=== PATIENT | female | born 1940 | race Caucasian/White ===

== ENCOUNTER 2019-04-06 09:25 | Inpatient (IN) | payer MEDICARE ==
[2019-04-06] MEDS ORDERED: SODIUM CHLORIDE 0.9% 500 ML 500 ML IV STA (10:01)
--- NOTE | 2019-04-06 10:08 | ED ---
General Adult HPI - General Chief complaint: Weakness Stated complaint: weakness, pain all over Time Seen by Provider: 04/06/19 09:35 Source: patient, RN notes reviewed Mode of arrival: wheelchair Limitations: no limitations - History of Present Illness Initial comments: This is a 78-year-old female who states that she is here because she is getting weaker and having more pain in her extremities. Patient states she has peripheral neuropathy in her legs and that has been getting progressively worse over the last 2 weeks the legs becoming more painful from the hip all the way down bilaterally. Patient states over the last week she started to have some pain in both of her arms. Patient states she thinks her arms and legs become somewhat weaker. Patient denies any numbness but does state they all have a tingling sensation. Patient denies any recent fever chills or cough. Patient denies any chest pain difficult breathing shortness of breath. Patient denies any abdominal pain patient denies nausea vomiting diarrhea. Patient denies any headache patient. Lightheadedness or dizziness. Patient denies any injury or trauma. Patient denies any neck or back pain. - Related Data Home Medications Medication Instructions Recorded Confirmed Aspirin EC [Ecotrin Low Dose] 81 - 162 mg PO HS 04/06/19 04/06/19 Magnesium Complex 1 cap PO DAILY 04/06/19 04/06/19 Nerve Renew 1 cap PO DAILY 04/06/19 04/06/19 Nerve Repair 1 cap PO DAILY 04/06/19 04/06/19 Allergies Allergy/AdvReac Type Severity Reaction Status Date / Time clonidine Allergy Unknown Verified 04/06/19 10:12 nitroglycerin Allergy Anaphylaxis Verified 04/06/19 10:12 Review of Systems ROS Statement: Those systems with pertinent positive or pertinent negative responses have been documented in the HPI. ROS Other: All systems not noted in ROS Statement are negative. Past Medical History Past Medical History: Diabetes Mellitus Additional Past Medical History / Comment(s): neuropathy History of Any Multi-Drug Resistant Organisms: None Reported Past Surgical History: Appendectomy, Hysterectomy, Tonsillectomy Additional Past Surgical History / Comment(s): 2 ectopic pregnancies Past Psychological History: No Psychological Hx Reported Smoking Status: Never smoker Past Alcohol Use History: None Reported Past Drug Use History: None Reported General Exam - General Exam Comments Initial Comments: GENERAL: Patient is well-developed and well-nourished. Patient is nontoxic and well- hydrated and is in mild distress. ENT: Neck is soft and supple. No significant lymphadenopathy is noted. Oropharynx is clear. Moist mucous membranes. Neck has full range of motion without eliciting any pain. EYES: The sclera were anicteric and conjunctiva were pink and moist. Extraocular movements were intact and pupils were equal round and reactive to light. Eyelids were unremarkable. PULMONARY: Unlabored respirations. Good breath sounds bilaterally. No audible rales rhonchi or wheezing was noted. CARDIOVASCULAR: There is a regular rate and rhythm without any murmurs gallops or rubs. ABDOMEN: Soft and nontender with normal bowel sounds. No palpable organomegaly was noted. There is no palpable pulsatile mass. SKIN: Skin is clear with no lesions or rashes and otherwise unremarkable. NEUROLOGIC: Patient is alert and oriented x3. Cranial nerves II through XII are grossly intact. Motor and sensory are also intact. Normal speech, volume and content. Symmetrical smile. MUSCULOSKELETAL: Normal extremities with reduced strength but equal bilaterally and full range of motion. No lower extremity swelling or edema. No calf tenderness. LYMPHATICS: No significant lymphadenopathy is noted PSYCHIATRIC: Normal psychiatric evaluation. Limitations: no limitations Course Vital Signs 04/06/19 04/06/19 09:35 09:51 Temperature 98.1 F Pulse Rate 102 H 96 Respiratory 18 18 Rate Blood Pressure 138/84 161/85 O2 Sat by Pulse 98 97 Oximetry Medical Decision Making - Medical Decision Making EKG shows normal sinus rhythm at 90 bpm HI interval 146 dresses 90 QT interval 376 QTC is 459. Patient's EKG shows no ST segment elevation or depression or T wave abnormalities are noted. CT of the C-spine showed no acute abnormalities however there were some chronic changes please see report. I spoke with Dr. Cazares he agreed to admit the patient admitted the patient I wr ote admitting orders. - Lab Data Result diagrams: 04/06/19 10:10 04/06/19 10:10 Lab Results 04/06/19 04/06/19 04/06/19 Range/Units 10:10 10:10 10:10 WBC 6.9 (3.8-10.6) k/uL RBC 4.65 (3.80-5.40) m/uL Hgb 13.1 (11.4-16.0) gm/dL Hct 39.6 (34.0-46.0) % MCV 85.2 (80.0-100.0) fL MCH 28.2 (25.0-35.0) pg MCHC 33.1 (31.0-37.0) g/dL RDW 13.9 (11.5-15.5) % Plt Count 245 (150-450) k/uL Neutrophils % 72 % Lymphocytes % 17 % Monocytes % 5 % Eosinophils % 3 % Basophils % 2 % Neutrophils # 4.9 (1.3-7.7) k/uL Lymphocytes # 1.2 (1.0-4.8) k/uL Monocytes # 0.4 (0-1.0) k/uL Eosinophils # 0.2 (0-0.7) k/uL Basophils # 0.1 (0-0.2) k/uL ESR 11 (0-20) mm/hr PT (9.0-12.0) sec INR (<1.2) APTT (22.0-30.0) sec Sodium 135 L (137-145) mmol/L Potassium 4.3 (3.5-5.1) mmol/L Chloride 101 (98-107) mmol/L Carbon Dioxide 23 (22-30) mmol/L Anion Gap 11 mmol/L BUN 29 H (7-17) mg/dL Creatinine 0.42 L (0.52-1.04) mg/dL Est GFR (CKD-EPI)AfAm >90 (>60 ml/min/1.73 sqM) Est GFR (CKD-EPI)NonAf >90 (>60 ml/min/1.73 sqM) Glucose 222 H (74-99) mg/dL Plasma Lactic Acid Eliu 1.3 (0.7-2.0) mmol/L Calcium 9.5 (8.4-10.2) mg/dL Magnesium 2.1 (1.6-2.3) mg/dL Total Bilirubin 1.1 (0.2-1.3) mg/dL AST 34 (14-36) U/L ALT 35 (9-52) U/L Alkaline Phosphatase 44 (38-126) U/L Troponin I (0.000-0.034) ng/mL Total Protein 7.2 (6.3-8.2) g/dL Albumin 4.0 (3.5-5.0) g/dL TSH 0.829 (0.465-4.680) mIU/L Free T4 1.70 (0.78-2.19) ng/dL Urine Color Urine Appearance (Clear) Urine pH (5.0-8.0) Ur Specific [place] (1.001-1.035) Urine Protein (Negative) Urine Glucose (UA) (Negative) Urine Ketones (Negative) Urine Blood (Negative) Urine Nitrite (Negative) Urine Bilirubin (Negative) Urine Urobilinogen (<2.0) mg/dL Ur Leukocyte Esterase (Negative) 04/06/19 04/06/19 04/06/19 Range/Units 10:10 10:10 11:00 WBC (3.8-10.6) k/uL RBC (3.80-5.40) m/uL Hgb (11.4-16.0) gm/dL Hct (34.0-46.0) % MCV (80.0-100.0) fL MCH (25.0-35.0) pg MCHC (31.0-37.0) g/dL RDW (11.5-15.5) % Plt Count (150-450) k/uL Neutrophils % % Lymphocytes % % Monocytes % % Eosinophils % % Basophils % % Neutrophils # (1.3-7.7) k/uL Lymphocytes # (1.0-4.8) k/uL Monocytes # (0-1.0) k/uL Eosinophils # (0-0.7) k/uL Basophils # (0-0.2) k/uL ESR (0-20) mm/hr PT 11.2 (9.0-12.0) sec INR 1.1 (<1.2) APTT 25.4 (22.0-30.0) sec Sodium (137-145) mmol/L Potassium (3.5-5.1) mmol/L Chloride (98-107) mmol/L Carbon Dioxide (22-30) mmol/L Anion Gap mmol/L BUN (7-17) mg/dL Creatinine (0.52-1.04) mg/dL Est GFR (CKD-EPI)AfAm (>60 ml/min/1.73 sqM) Est GFR (CKD-EPI)NonAf (>60 ml/min/1.73 sqM) Glucose (74-99) mg/dL Plasma Lactic Acid Eliu (0.7-2.0) mmol/L Calcium (8.4-10.2) mg/dL Magnesium (1.6-2.3) mg/dL Total Bilirubin (0.2-1.3) mg/dL AST (14-36) U/L ALT (9-52) U/L Alkaline Phosphatase (38-126) U/L Troponin I <0.012 (0.000-0.034) ng/mL Total Protein (6.3-8.2) g/dL Albumin (3.5-5.0) g/dL TSH (0.465-4.680) mIU/L Free T4 (0.78-2.19) ng/dL Urine Color Yellow Urine Appearance Clear (Clear) Urine pH 6.0 (5.0-8.0) Ur Specific [place] 1.015 (1.001-1.035) Urine Protein Trace H (Negative) Urine Glucose (UA) 2+ H (Negative) Urine Ketones Trace H (Negative) Urine Blood Negative (Negative) Urine Nitrite Negative (Negative) Urine Bilirubin Negative (Negative) Urine Urobilinogen <2.0 (<2.0) mg/dL Ur Leukocyte Esterase Negative (Negative) Disposition Clinical Impression: Upper extremity weakness, Lower extremity weakness Disposition: ADMITTED IP TO THIS [facility] Referrals: Ihsan Klein MD [Primary Care Provider] - 1-2 days Time of Disposition: 11:58
[2019-04-06 10:21] LABS: Basophils # (A) 0.1 k/uL (0-0.2); Basophils % (A) 2 %; Eosinophils # (A) 0.2 k/uL (0-0.7); Eosinophils % (A) 3 %; HCT 39.6 % (34.0-46.0); HGB 13.1 gm/dL (11.4-16.0); Lymphocytes # (A) 1.2 k/uL (1.0-4.8); Lymphocytes % (A) 17 %; MCH 28.2 pg (25.0-35.0); MCHC 33.1 g/dL (31.0-37.0); MCV 85.2 fL (80.0-100.0); Mean Platelet Volume 7.8; Monocytes # (A) 0.4 k/uL (0-1.0); Monocytes % (A) 5 %; Neutrophils # (A) 4.9 k/uL (1.3-7.7); Neutrophils % (A) 72 %; Platelet Count 245 k/uL (150-450); RBC 4.65 m/uL (3.80-5.40); RDW 13.9 % (11.5-15.5); WBC 6.9 k/uL (3.8-10.6)
--- NOTE | 2019-04-06 10:27 | XR ---
EXAMINATION TYPE: XR chest 2V DATE OF EXAM: 04/06/2019 COMPARISON: None HISTORY: 78-year-old female with weakness TECHNIQUE: AP and lateral views FINDINGS: Heart normal size. Atherosclerotic calcifications throughout the aorta. Strandy atelectasis throughou t the left lung. No consolidation or pleural effusion. IMPRESSION: Strandy atelectasis left lung. Otherwise, no acute process seen.
[2019-04-06 10:28] LABS: ALT 35 U/L (9-52); AST 34 U/L (14-36); African American GFR (CKD) >90 (>60 ml/min/1.73 sqM); Alkaline Phosphatase 44 U/L (38-126); Anion Gap 11 mmol/L; Blood Urea Nitrogen 29 mg/dL (7-17); Calcium 9.5 mg/dL (8.4-10.2); Carbon Dioxide 23 mmol/L (22-30); Chloride 101 mmol/L (98-107); Glucose 222 mg/dL (74-99); Magnesium 2.1 mg/dL (1.6-2.3); Sodium 135 mmol/L (137-145); Total Bilirubin 1.1 mg/dL (0.2-1.3); Total Protein 7.2 g/dL (6.3-8.2)
[2019-04-06 10:31] LABS: INR 1.1 (<1.2); Partial Thromboplastin Time 25.4 sec (22.0-30.0); Prothrombin Time 11.2 sec (9.0-12.0)
[2019-04-06 10:36] LABS: Potassium 4.3 mmol/L (3.5-5.1)
--- NOTE | 2019-04-06 10:45 | CT ---
EXAMINATION TYPE: CT cervical spine wo con DATE OF EXAM: 04/06/2019 COMPARISON: None HISTORY: 78-year-old female neck pain TECHNIQUE: Contiguous axial scanning of the cervical spine without IV contrast. Coronal and sagittal reconstructions performed. CT DLP: 288.2 mGycm Automated exposure control for dose reduction was used. FINDINGS: No craniocervical junction abnormality, predental space widening, or prevertebral soft tissue swellin g. Degenerative changes at the C1 dens articulation. Moderate to advanced discussion plate degenerative change from C4 through C7 levels with small disc o steophyte complexes. Trace grade 1 anterolisthesis at C7-T1. Otherwise, alignment is maintained. Facet and uncovertebral joint arthropathy throughout. No acute fracture of the cervical spine. At C4-C5, changes result in moderate right neural foraminal stenosis. At C5-C6, changes result in mild bilateral neural foraminal stenosis. There is a 1.3 cm heterogeneous nodule within the left lobe of the thyroid gland. IMPRESSION: 1. MODERATE SPONDYLOTIC CHANGES ESPECIALLY FROM C4-C7 LEVELS. 2. 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 3. VARIABLE MILD TO MODERATE NEURAL FORAMINAL STENOSES OUTLINED ABOVE. 4. A 1.3 CM LEFT THYROID NODULE CAN BE FURTHER EVALUATED WITH NONEMERGENT THYROID ULTRASOUND.
[2019-04-06 11:10] LABS: Erythrocyte Sedimentation Rate 11 mm/hr (0-20)
[2019-04-06 11:24] LABS: Appearance,Urine Clear (Clear); Bilirubin,Urine Negative (Negative); Blood,Urine Negative (Negative); Color,Urine Yellow; Glucose,Urine (UA) 2+ (Negative); Ketones,Urine Trace (Negative); Leukocyte Esterase,Urine Negative (Negative); Nitrite,Urine Negative (Negative); Protein,Urine Trace (Negative); Specific Gravity,Urine 1.015 (1.001-1.035); Urobilinogen,Urine <2.0 mg/dL (<2.0)
[2019-04-06] MEDS ORDERED: SODIUM CHLORIDE 0.9% 1,000 ML IV ONE (11:59)
[2019-04-06 14:20] LABS: Glucose,Whole Blood 179 mg/dL (75-99)
[2019-04-06] MEDS ORDERED: ALPRAZolam 0.25 MG TAB PO PRN (15:51)
[2019-04-06] MEDS ORDERED: TEMAZEPAM 15 MG CAP PO PRN (15:51)
[2019-04-06] MEDS ORDERED: ACETAMINOPHEN TAB 500 MG TAB PO PRN (15:51)
[2019-04-06] MEDS: HYDROcodone/APAP 5-325MG 1 EACH TAB PO PRN (16:30)
[2019-04-06] MEDS ORDERED: hydrALAZINE HCL 25 MG TAB PO STA (16:37)
--- NOTE | 2019-04-06 16:57 | CT ---
EXAMINATION TYPE: CT brain wo con DATE OF EXAM: 04/06/2019 COMPARISON: None HISTORY: Bilateral lower extremity weakness. CT DLP: 1056.8 mGycm Automated exposure control for dose reduction was used. FINDINGS: Ventricles have normal size. There is no mass effect nor midline shift. There is no sign of intracran ial hemorrhage. Calvarium is intact. There is small mucus retention cyst right maxillary sinus. IMPRESSION: NEGATIVE CT SCAN OF THE BRAIN.
--- NOTE | 2019-04-06 17:09 | HP ---
HISTORY AND PHYSICAL DATE OF SERVICE: 04/06/2019 CHIEF COMPLAINT: Weakness. HISTORY OF PRESENT ILLNESS: This 78-year-old woman with a past medical history of multiple medical problems, including diabetes, history of peripheral neuropathy, hysterectomy, being followed by a primary physician in the [facility], recently moved to [place] over the last 2 months. The patient is supposed to see Dr. Klein in the near future. 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 Currently the patient also has numbness in the upper limbs. She started dropping things, also. The patient came to [facility] and was admitted for further evaluation and treatment. Evaluation in the ER showed normal CBC and creatinine 0.42, glucose 222. The patient was admitted for further evaluation and treatment. There is no history of any fever, rigor or chills. No history of headache, loss of consciousness, seizures at this time. PAST MEDICAL HISTORY: 1. History of diabetes mellitus. 2. Peripheral neuropathy. 3. History of polio. 4. History of hysterectomy. 5. History of tonsillectomy. HOME MEDICATIONS: 1. Nerve Repair and Nerve Renew 1 daily. 2. Magnesium complex 1 p.o. daily. 3. Aspirin 81 mg daily. ALLERGIES: 1. CLONIDINE. 2. NITRO. FAMILY HISTORY: No history of heart disease or strokes in the family. SOCIAL HISTORY: No history of smoking. No history of alcohol intake. REVIEW OF SYSTEMS: ENT: No diminished hearing. No diminished vision. CARDIOVASCULAR SYSTEM: As mentioned earlier. RESPIRATORY SYSTEM: As mentioned earlier. GI: No nausea, vomiting. : No dysuria or retention. NERVOUS SYSTEM: As mentioned earlier. ALLERGY/IMMUNOLOGY: No asthma, hayfever. MUSCULOSKELETAL: As mentioned earlier. HEMATOLOGY/ONCOLOGY: No history of anemia. ENDOCRINE: History of diabetes mellitus. CONSTITUTIONAL: As mentioned earlier. DERMATOLOGY: Negative. RHEUMATOLOGY: Negative. PSYCHIATRY: As mentioned earlier. PHYSICAL EXAMINATION: Patient alert and oriented x3. Pulse is 96, blood pressure 179/80, respiration 18, temperature 98.0, pulse ox 99% on room air. HEENT: Conjunctivae normal. Oral mucosa moist. NECK: No jugular venous distention. No carotid bruit. No lymph node enlargement. CARDIOVASCULAR SYSTEM: S1, S2 muffled. RESPIRATORY SYSTEM: Breath sounds diminished at the bases. A few scattered rhonchi. No crackles. ABDOMEN: Soft, non-tender. No mass palpable. LEGS: No edema. No swelling. NERVOUS SYSTEM: Higher functions as mentioned earlier. Cranial nerves 2 through 12 grossly intact. Moves all 4 limbs. Minimal sensory difficulty in the upper limbs. Otherwise, significant sensory loss in both lower limbs and significant wasting and weakness also present. Reflexes are diminished. The gait is abnormal. SKIN: No ulcer, rash, bleeding. JOINTS: No active deforming arthropathy. LYMPHATICS: No lymph node palpable in neck, axillae or groin. LABS: Labs at this time show WBC 6.9, hemoglobin 13.1. INR 1.1. Sodium 135, creatinine 0.42. Accu-Cheks 222. Hemoglobin A1c is not available. ASSESSMENT: 1. Significant weakness and gait dysfunction, possibly peripheral neuropathy, motor, sensory; etiology undetermined. 2. Diabetes mellitus, type 2. 3. Hyponatremia. 4. Gait dysfunction. 5. History of appendectomy. 6. History of hysterectomy. 7. History of tonsillectomy. 8. History of ectopic . RECOMMENDATIONS AND DISCUSSION: In this 78-year-old woman who presented with multiple complex medical issues, we will monitor the patient closely, continue the current management, continue with symptomatic treatment. Otherwise, I would recommend a neurology consultation. The patient had a cervical spine CT which showed moderate spondylotic changes, especially from C4-7 levels, and DJD in C7-T1, variable mild to moderate neural foraminal stenosis as outlined above and 1.3 cm left thyroid nodule also. Spondylitic changes in C4-7. I would also recommend orthopedic evaluation if the deficit is more likely to be cervical neck in origin. Otherwise, will continue to monitor. Supplement vitamins. See orders for further details. Prognosis is guarded because of multiple complex medical issues. Further recommendations to follow. A copy of this dictation is being forwarded to Dr. Klein, who will be the primary physician. MMODL / IJN: [id number] /
[2019-04-06 17:16] LABS: Glucose,Whole Blood 211 mg/dL (75-99)
[2019-04-06 20:20] LABS: Glucose,Whole Blood 150 mg/dL (75-99)
[2019-04-06] MEDS: INSULIN ASPART (NovoLOG) 100 UNIT/ML VIAL SQ SCH (20:22)
[2019-04-06] MEDS: HEPARIN SODIUM,PORCINE 5,000 UNIT/ML 1 ML VIAL SQ SCH (20:34)
--- NOTE | 2019-04-06 22:44 | P.CNNES ---
History of Present Illness Consult date: 04/06/19 Reason for Consult: Generalized weakness Chief complaint: Generalized weakness History of Present Illness: REFERRING PHYSICIAN: Dr. Frederick Quijano HISTORY OF PRESENT ILLNESS: Thank you for allowing me to evaluate Mrs. Shaila Mari. Mr. Mari is a 78-year-old woman with past medical history of diabetes and neuropathy, presented to [facility] for increasing weakness and pain in her extremities. Patient states that she's having issues with numbness and tingling of her b/l LE along with her b/l hands. She was seen by a specialist where she should to live up in [facility], underwent thorough work-up with EMG/NCS/MRI just at the end of 2018, and was given the diagnosis of peripheral neuropathy. Patient states that she has been able to follow up with any of her doctors since early this year as her and she decided to move down to [place]. Patient has tried gabapentin, which did not help, lyrica helped but caused multiple falls. When asked about TCAs, she thinks she has tried them but does not want to try any meds for cocnerns of side effects. Patient states that her peripheral neuropathy in her legs has been progressively getting worse over the last 2 weeks where they became more painful from the hip all the way down bilaterally. Patient also started having pain in both of her arms. Patient also thinks that her arms and legs are becoming weaker. PAST MEDICAL HISTORY: Diabetes, neuropathy PAST SURGICAL HISTORY: Appendectomy, hysterectomy, tonsillectomy, 2 ectopic pregnancies. HOME MEDICATIONS: Magnesium, aspirin ALLERGIES: Clonidine, nitroglycerin SOCIAL HISTORY: Never smoker. Lives alone. REVIEW OF SYSTEMS: The 14 systems are reviewed and no additional points are identified compared to the review of systems documented history and physical PHYSICAL EXAMINATION: VITAL SIGNS: Temperature 97.9 pulse rate 96 respiratory rate 17 for pressure 193/80 O2 saturation 98% on 2 L via nasal cannula GEN.: NAD, pleasant and cooperative HEENT: NCAT, sclera without icterus NECK: Supple SKIN AND EXTREMITIES: Warm to touch, no edema NEURO: MENTAL STATUS: Patient alert and oriented to self, place, time. Able to name the current president. Speech fluent, able to name and repeat, following all commands readily. No right and left disorientation, neglect. CRANIAL NERVES II THROUGH XII: II: Pupils are equal and reactive to light symmetrically. No afferent pupillary defect. Visual carrillo are intact. III, IV, : No ptosis. Extraocular movements full. No nystagmus. V: Facial sensation intact from V1-3. VII. No clear facial asymmetry. VIII: Hearing intact to finger rub bilaterally. IX, X: Symmetric palate elevation. XI: Shoulder s hrug intact. XII: Tongue midline without fasciculation or atrophy. MOTOR: Decreased bulk and tone in his b/l LE. No pronator drift or tremor. Strength is 4/5 in b/l UE, weaker hands, b/l LE patient is able to wiggle toes and barely lift his legs against gravity. 1/5 hip flexors/extensors. SENSORY: Decreased to light touch in b/l LE > b/l UE REFLEXES: No reflexes. Toes are downgoing. No clonus. Cristofer's is absent COORDINATION: Finger to nose intact. No dysmetria. GAIT: Patient is unable to stand up on her own due to b/l LE weakness. DIAGNOSTIC TESTING: LABORATORY: WBC 6.9 hemoglobin 13.1 platelets 245 TT 11.2 INR 1.1 Sodium 135 potassium 4.3 chloride 101 bicarb January 27 creatinine 0.42 glucose 222 AST 34 ALT 35 troponin <2.012 TSH 0.8-9 free T4 1 0.7 urinalysis 2+ glucose IMAGING: CT C-spine 04/06/2019: Moderate spondylotic changes especially from C4 to C7 levels. Degenerative grade 1 anterolisthesis at C7 to T1 Variable mild to moderate neural foraminal stenoses. ASSESSMENT: Mr. Mari is a 78-year-old woman with past medical history of diabetes and neuropathy, presented to [facility] for increasing weakness and pain in her extremities. Patient has a known diagnosis of peripheral neuropathy with extensive work-up. Patient's symptoms appear to be most likely secondary to her diabetes, causing diabetic lumbosacral plexopathy. Patient is refusing to try any meds to help her with the paresthesais. RECOMMENDATIONS: 1. Patient will need a new neurologist in [place]. Outpatient neurologist follow-up within 2-3 weeks of discharge (patient must bring all her record from her previous neurologist). 2. Patient is refusing any possible work-up (including LP) and new medications as she feels that an extensive work-up has been done and she does not like any medication side effects. 3. Neurology will sign off at this time. Please feel free to contact with additional questions or concerns. Past Medical History Past Medical History: Diabetes Mellitus Additional Past Medical History / Comment(s): neuropathy History of Any Multi-Drug Resistant Organisms: None Reported Past Surgical History: Appendectomy, Hysterectomy, Tonsillectomy Additional Past Surgical History / Comment(s): 2 ectopic pregnancies Past Psychological History: No Psychological Hx Reported Smoking Status: Never smoker Past Alcohol Use History: None Reported Past Drug Use History: None Reported Medications and Allergies Home Medications Medication Instructions Recorded Confirmed Type Aspirin EC [Ecotrin Low Dose] 81 - 162 mg PO HS 04/06/19 04/06/19 History Magnesium Complex 1 cap PO DAILY 04/06/19 04/06/19 History Nerve Renew 1 cap PO DAILY 04/06/19 04/06/19 History Nerve Repair 1 cap PO DAILY 04/06/19 04/06/19 History Allergies Allergy/AdvReac Type Severity Reaction Status Date / Time clonidine Allergy Unknown Verified 04/06/19 10:12 nitroglycerin Allergy Anaphylaxis Verified 04/06/19 10:12 Physical Examination - Vital Signs Vital Signs: Vital Signs Temp Pulse Pulse Resp BP BP Pulse Ox 04/06/19 14:08 98 197/80 04/06/19 13:01 97.9 F 96 17 193/80 98 04/06/19 12:38 98.1 F 96 18 179/80 99 04/06/19 12:18 96 18 179/80 99 04/06/19 09:51 96 18 161/85 97 04/06/19 09:35 98.1 F 102 H 18 138/84 98 Intake and Output 04/06/19 04/06/19 04/06/19 06:59 14:59 22:59 Intake Total 225 Balance 225 Intake: Intake, IV Titration 75 Amount Sodium Chloride 0.9% 1, 75 000 ml @ 75 mls/hr IV . [id number] ONE Rx#:[id number] Oral 150 Other: Weight 63.503 kg Results - Laboratory Findings CBC and BMP: 04/06/19 10:10 04/06/19 10:10 Abnormal Lab Findings: Abnormal Labs 04/06/19 04/06/19 04/06/19 10:10 11:00 14:15 Sodium 135 L BUN 29 H Creatinine 0.42 L Glucose 222 H POC Glucose (mg/dL) 179 H Urine Protein Trace H Urine Glucose (UA) 2+ H Urine Ketones Trace H
[2019-04-07] MEDS: HYDROcodone/APAP 5-325MG 1 EACH TAB PO PRN (00:49)
[2019-04-07 01:51] LABS: Hemoglobin A1C 8.1 % (4.0-6.0)
[2019-04-07 07:05] LABS: Basophils # (A) 0.1 k/uL (0-0.2); Basophils % (A) 1 %; Eosinophils # (A) 0.4 k/uL (0-0.7); Eosinophils % (A) 8 %; HCT 39.4 % (34.0-46.0); HGB 13.1 gm/dL (11.4-16.0); Lymphocytes # (A) 1.5 k/uL (1.0-4.8); Lymphocytes % (A) 27 %; MCH 29.1 pg (25.0-35.0); MCHC 33.3 g/dL (31.0-37.0); MCV 87.4 fL (80.0-100.0); Mean Platelet Volume 7.7; Monocytes # (A) 0.4 k/uL (0-1.0); Monocytes % (A) 7 %; Neutrophils # (A) 3.1 k/uL (1.3-7.7); Neutrophils % (A) 55 %; Platelet Count 216 k/uL (150-450); RBC 4.51 m/uL (3.80-5.40); WBC 5.6 k/uL (3.8-10.6)
[2019-04-07 07:13] LABS: African American GFR (CKD) >90 (>60 ml/min/1.73 sqM); Anion Gap 7 mmol/L; Blood Urea Nitrogen 19 mg/dL (7-17); Carbon Dioxide 25 mmol/L (22-30); Chloride 105 mmol/L (98-107); Glucose 165 mg/dL (74-99); Potassium 4.1 mmol/L (3.5-5.1); Sodium 137 mmol/L (137-145)
[2019-04-07 07:19] LABS: Glucose,Whole Blood 178 mg/dL (75-99)
--- NOTE | 2019-04-07 07:26 | P.CNOR ---
History of Present Illness - HPI Consult date: 04/07/19 Consult reason: other (Subacute Bilateral upper extremity weakness bilateral lower extremity weakness new) History of present illness: The patient is a very pleasant 78-year-old female who recently moved to [facility] [place] about 2 months ago. She says she has history of bilateral lower extremity weakness over the past year and a half which has worsened significantly over the past couple of months. She also feels that she has had significant worsening her bilateral upper extremity strength over the past 2 months. She has a history of severe bilateral diabetic peripheral neuropathy at her lower extremities but had not been having a problems in her arms until the past couple of months. She had previously been living in [facility] until she lost her in July of last year and and has been having significant decline since August of this year. She moved here couple of months ago and has been having significant difficulty and worsening strength. She lives in assisted living for her meals and usually uses a rolling walker. She says she is usually able to get herself around and get in and out of chairs but over the past few weeks has been getting significantly different more difficult for her and now she is unable to stand up on her own. She does not have any specific injury or trauma. She denies any specific radicular pattern. She denies any changes in bowel bladder function. Review of Systems She has always had left lower extremity weakness and history of polio since she was 10 years old but now she is unable to lift her left leg at all. She has g reat difficulty trying to lift her right leg or trying to stand. She is unable to stand by herself she has full assist when trying to stand. She feels her upper extremities are weakening as well but she's not sure if this is from her arms were at the fact that she can't move her legs as well. Otherwise as stated per HPI. Past Medical History Past Medical History: Diabetes Mellitus Additional Past Medical History / Comment(s): neuropathy History of Any Multi-Drug Resistant Organisms: None Reported Past Surgical History: Appendectomy, Hysterectomy, Tonsillectomy Additional Past Surgical History / Comment(s): 2 ectopic pregnancies Past Psychological History: No Psychological Hx Reported Smoking Status: Never smoker Past Alcohol Use History: None Reported Past Drug Use History: None Reported Medications and Allergies Home Medications Medication Instructions Recorded Confirmed Type Aspirin EC [Ecotrin Low Dose] 81 - 162 mg PO HS 04/06/19 04/06/19 History Magnesium Complex 1 cap PO DAILY 04/06/19 04/06/19 History Nerve Renew 1 cap PO DAILY 04/06/19 04/06/19 History Nerve Repair 1 cap PO DAILY 04/06/19 04/06/19 History Allergies Allergy/AdvReac Type Severity Reaction Status Date / Time clonidine Allergy Unknown Verified 04/06/19 10:12 nitroglycerin Allergy Anaphylaxis Verified 04/06/19 10:12 Physical Examination Osteopathic Statement: *. No significant issues noted on an osteopathic structural exam other than those noted in the History and Physical/Consult. - Wrist & Hand bilateral Location of pain: no pain (Her operative time is really have 5 out of 5 strength with bar pointer wrist flexion and extension biceps and triceps. She has negative Cristofer sign. She has no upper motor neuron signs. Her arms have good strength.) - Knee bilateral Appearance: normal (At her lower extremities her left leg has some diffuse atrophy. She is unable to lift her legs up off the bed bilaterally. She has 4 out of 5 dorsiflexion on the right but 0 out of 5 on the left. She has 4-5 plantar flexion on the right and 0-5 on the left. There is no upper motor neuron signs her Thighs soft nontender. She is unable to lift her legs up off the bed. There is no pain with internal extra rotation of her hips. Her abdomen soft nontender. Chest has good excursion deep inspection expiration) Results - Labs Labs: Abnormal Lab Results - Last 24 Hours (Table) 04/06/19 04/06/19 04/06/19 Range/Units 10:10 10:10 10:10 Sodium 135 L (137-145) mmol/L BUN 29 H (7-17) mg/dL Creatinine 0.42 L (0.52-1.04) mg/dL Glucose 222 H (74-99) mg/dL POC Glucose (mg/dL) (75-99) mg/dL Hemoglobin A1c 8.1 H (4.0-6.0) % Vitamin B12 1967.0 H (200.0-944.0) pg/mL Urine Protein (Negative) Urine Glucose (UA) (Negative) Urine Ketones (Negative) 04/06/19 04/06/19 04/06/19 Range/Units 11:00 14:15 17:14 Sodium (137-145) mmol/L BUN (7-17) mg/dL Creatinine (0.52-1.04) mg/dL Glucose (74-99) mg/dL POC Glucose (mg/dL) 179 H 211 H (75-99) mg/dL Hemoglobin A1c (4.0-6.0) % Vitamin B12 (200.0-944.0) pg/mL Urine Protein Trace H (Negative) Urine Glucose (UA) 2+ H (Negative) Urine Ketones Trace H (Negative) 04/06/19 04/07/19 Range/Units 20:19 06:22 Sodium (137-145) mmol/L BUN 19 H (7-17) mg/dL Creatinine 0.44 L (0.52-1.04) mg/dL Glucose 165 H (74-99) mg/dL POC Glucose (mg/dL) 150 H (75-99) mg/dL Hemoglobin A1c (4.0-6.0) % Vitamin B12 (200.0-944.0) pg/mL Urine Protein (Negative) Urine Glucose (UA) (Negative) Urine Ketones (Negative) H & H 04/06/19 04/07/19 Range/Units 10:10 06:22 Hgb 13.1 13.1 (11.4-16.0) gm/dL Hct 39.6 39.4 (34.0-46.0) % Coagulation 04/06/19 Range/Units 10:10 INR 1.1 (<1.2) Result Diagrams: 04/07/19 06:22 04/07/19 06:22 - Diagnostic results CT scan - cervical: report reviewed, image reviewed (The computed tomography scan of her cervical spine is reviewed and shows some diffuse spondylosis with some disc protrusion it is difficult to ascertain the full extent of her stenosis at her cervical spine and we don't have images to determine if there is any cord change.) Assessment and Plan Assessment: Diffuse severe diabetic peripheral neuropathy Severe bilateral lower extremity weakness which appears to be worsening over the past several weeks as per the patient Reported weakness in bilateral upper extremities which has been worsening as per patient Depression Inability to ambulate and transfer Plan: Diffuse severe diabetic peripheral neuropathy Severe bilateral lower extremity weakness which appears to be worsening over the past several weeks as per the patient Reported weakness in bilateral upper extremities which has been worsening as per patient Depression Inability to ambulate and transfer The patient's symptoms are not following a specific radicular pattern. She has some diffuse spondylosis at her cervical spine but her symptoms at her upper extremities do not correlate well. Her upper external strength actually appears to be adequate on her exam and I think that her perceived weakness at her upper extremities is likely due to the significant loss of strength at her lower extremities. She says she had workup back in July for her spine but this is a new change for her in terms of her strength and I think that we should go ahead and get repeat workup of her cervical and lumbar spine to evaluate for any specific change given her increased weakness over the past few weeks. Many of her symptoms surgery results or her peripheral neuropathy however her progressive weakness is somewhat challenging and I think further workup is necessary. She is not having specific radicular pattern to attribute in terms of her upper extremities and is unlikely that any surgical intervention would be necessary barring specific findings on a new MRI. I discussed this with her at length. And we will continue to follow her with a new imaging studies. Certainly she has some depression with her passing away and Armando accounts very closely with her progressive symptoms since that time and we will have counseling see her as well. Time with Patient: Greater than 30
[2019-04-07] MEDS: HEPARIN SODIUM,PORCINE 5,000 UNIT/ML 1 ML VIAL SQ SCH ×2 (07:30→21:45)
[2019-04-07] MEDS: MULTIVITAMINS, THERA 1 EACH TAB PO SCH (07:30)
[2019-04-07] MEDS: PANTOPRAZOLE 40 MG TABLET PO SCH (07:30)
[2019-04-07] MEDS: FOLIC ACID 1 MG TAB PO SCH (07:30)
[2019-04-07] MEDS: INSULIN ASPART (NovoLOG) 100 UNIT/ML VIAL SQ SCH ×4 (07:31→21:45)
[2019-04-07 11:46] LABS: Glucose,Whole Blood 173 mg/dL (75-99)
[2019-04-07] MEDS: THIAMINE 100 MG TAB PO SCH (12:01)
--- NOTE | 2019-04-07 15:16 | MR ---
EXAMINATION TYPE: MR cspine/lspine wo con DATE OF EXAM: 04/07/2019 COMPARISON: None HISTORY: Upper extremity pain and weakness TECHNIQUE: Multiplanar, multisequence imaging of the lumbar spine and cervical spine is performed wit hout IV contrast. FINDINGS: Cervical spine Vertebra have normal alignment. There is narrowing of disc spaces throughout the cervical spine. Ther e are small posterior endplate spur formation and disc herniation posteriorly from C3 to C7. There is no significant narrowing of the spinal canal. Spinal canal measures minimal mild 9 mm. Cervical spin al cord has normal signal pattern. There is no edema. There is no compression fracture. Brainstem grant ears intact. There is no cervical paraspinal mass. There is mild cervical hypertrophic facet arthropa thy. There is a small posterior disc herniation at T2-T3 level without spinal stenosis. IMPRESSION: Ordinary multilevel mild spondylotic changes. No spinal stenosis. Small posterior multilevel disc bul ging without impingement on the spinal cord. No fracture. Lumbar spine There is some narrowing of the disc spaces at L4-5 L5-S1. There is 5 mm anterior subluxation of L4 in relation L5. The posterior elements appear intact. There is small posterior disc bulging at L3-4 L4-5 L5-S1. There is bony spinal stenosis at L4-5 due to the facet arthropathy and subluxation deformity and minimal disc bulging. There is no lumbar paraspinal m ass. There is mild lateral recess stenosis due to facet arthropathy at L3-4. Visualized sacroiliac kizzy ints appear intact. There is no compression fracture. IMPRESSION: Mild multilevel spondylotic changes. There is a degenerative first-degree L4-5 spondylolisthesis with facet arthropathy and resultant moderate bony spinal stenosis. No acute bony abnormality.
[2019-04-07 16:49] LABS: Glucose,Whole Blood 151 mg/dL (75-99)
[2019-04-07 19:33] LABS: Glucose,Whole Blood 174 mg/dL (75-99)
--- NOTE | 2019-04-07 20:27 | PN ---
PROGRESS NOTE DATE OF SERVICE: 04/07/2019 This 78-year-old woman who was admitted with significant weakness and gait dysfunction MMODL / IJN: [id number] /
--- NOTE | 2019-04-07 22:19 | PN ---
PROGRESS NOTE DATE OF SERVICE: 04/07/2019. HISTORY OF PRESENT ILLNESS: This 78-year-old woman who was admitted with significant weakness and wasting and has had a history of peripheral neuropathy. Patient had extensive workup and apparently in [facility], patient recently moved to the area and was supposed to see Dr. Klein in the near future. PAST MEDICAL HISTORY: Reviewed. REVIEW OF SYSTEMS: Cardiovascular system: No angina or palpitations. RESPIRATORY: As mentioned earlier. GI no nausea or vomiting. : As mentioned earlier. CENTRAL NERVOUS SYSTEM: No focal deficits. CURRENT MEDICATIONS ARE: Reviewed and include: 1. Tylenol p.r.n. 2. [place] 5 mg q.6h p.r.n. 3. Xanax 0.5 t.i.d. 4. Folic acid 1 mg. 5. Heparin subcu q.8h. 6. NovoLog. 7. Multivitamins. 8. Protonix. 9. Restoril. 10.Vitamin B1. PHYSICAL EXAMINATION: The patient is alert and oriented times three. Pulse is 89. Blood pressure 160/83, respirations 18, temperature 98 degrees, pulse ox 97% on room air. HEENT: Conjunctivae normal. NECK: No JVD. CARDIOVASCULAR: S1, S2 muffled. RESPIRATION: Breath sounds diminished in the bases. A few scattered rhonchi and crackles. ABDOMEN: Soft, nontender. No mass palpable. LEGS: No edema. No swelling. Nervous system: Higher functions as mentioned earlier. Significant peripheral neuropathy plus muscle weakness, pulses diminished. LABS: At this time shows CBC within normal limits and creatinine 0.44. Glucose noted. ESR is 11, CRP less than 5. Vitamin B12 is 1967, free T4 is 1.70. ASSESSMENT: 1. Significant diffuse progressive peripheral neuropathy, possible diabetic peripheral neuropathy. 2. Rule out motor component weakness. 3. Gait dysfunction. 4. Diabetes mellitus type 2. 5. Hyponatremia. 6. History of appendectomy. 7. History of hysterectomy. 8. History of tonsillectomy. 9. History of ectopic . RECOMMENDATIONS AND DISCUSSION: In this 78-year-old woman who presented with multiple medical issues, we will monitor the patient closely. Continue the current management and follow closely with Neurology, PO/OT evaluation, possible ECF rehab. The patient is apparently at high risk of fall at this time. Continue to monitor. Further recommendations to follow. See orders for details. MMODL / IJN: [id number] /
[2019-04-08] MEDS: HYDROcodone/APAP 5-325MG 1 EACH TAB PO PRN (06:04)
[2019-04-08 07:02] LABS: Glucose,Whole Blood 181 mg/dL (75-99)
[2019-04-08 07:15] LABS: Basophils # (A) 0.1 k/uL (0-0.2); Basophils % (A) 1 %; Eosinophils # (A) 0.3 k/uL (0-0.7); Eosinophils % (A) 6 %; HCT 39.3 % (34.0-46.0); HGB 12.7 gm/dL (11.4-16.0); Lymphocytes # (A) 1.5 k/uL (1.0-4.8); Lymphocytes % (A) 26 %; MCH 28.3 pg (25.0-35.0); MCHC 32.4 g/dL (31.0-37.0); MCV 87.4 fL (80.0-100.0); Mean Platelet Volume 7.2; Monocytes # (A) 0.3 k/uL (0-1.0); Monocytes % (A) 6 %; Neutrophils # (A) 3.4 k/uL (1.3-7.7); Neutrophils % (A) 59 %; Platelet Count 203 k/uL (150-450); RBC 4.49 m/uL (3.80-5.40); RDW 14.1 % (11.5-15.5); WBC 5.8 k/uL (3.8-10.6)
[2019-04-08 07:24] LABS: African American GFR (CKD) >90 (>60 ml/min/1.73 sqM); Anion Gap 8 mmol/L; Blood Urea Nitrogen 19 mg/dL (7-17); Calcium 9.1 mg/dL (8.4-10.2); Carbon Dioxide 24 mmol/L (22-30); Chloride 105 mmol/L (98-107); Glucose 155 mg/dL (74-99); Potassium 3.7 mmol/L (3.5-5.1); Sodium 137 mmol/L (137-145)
[2019-04-08] MEDS: INSULIN ASPART (NovoLOG) 100 UNIT/ML VIAL SQ SCH ×4 (08:17→20:20)
[2019-04-08] MEDS: HEPARIN SODIUM,PORCINE 5,000 UNIT/ML 1 ML VIAL SQ SCH ×2 (08:18→20:19)
[2019-04-08] MEDS: THIAMINE 100 MG TAB PO SCH (08:19)
[2019-04-08] MEDS: PANTOPRAZOLE 40 MG TABLET PO SCH (08:19)
[2019-04-08] MEDS: MULTIVITAMINS, THERA 1 EACH TAB PO SCH (08:19)
[2019-04-08] MEDS: FOLIC ACID 1 MG TAB PO SCH (08:19)
[2019-04-08 11:06] LABS: Glucose,Whole Blood 105 mg/dL (75-99)
--- NOTE | 2019-04-08 13:57 | P.PN ---
Progress Note - Text Progress Note Date: 04/08/19 Patient seen and examined at bedside today. She still having significant weakness at her lower extremities with pain in her legs. She says her neck is giving her some pain about her arms aren't as bad. She denies any chest pain shortness breath. She denies any changes in her bowel bladder function. On exam she has weakness at her bilateral lower extremities particularly on the left side. She is able to dorsiflex plantarflex her toes on the right. She has some proximal weakness at her left. She is a history of polio on the left. Imaging is done of her cervical and lumbar spine MRI. The cervical spine/some diffuse spondylosis with disc bulging without significant central or foraminal stenosis And lumbar spine there is spondylolisthesis at L4 5 grade 1-2 with evidence of central and bilateral foraminal stenosis there is no acute change or fracture. Assessment and plan Bilateral lower extremity weakness worse on left than the right Inability to ambulate due to lower extremity weakness Spondylolisthesis L4 5 with stenosis The patient's cervical spine does not show specific acute change but does have some diffuse spondylosis. I do not think that she has specific upper extremity weakness but has been having more trouble getting herself up due to the weakness in her lower extremities. She does have significant stenosis with spondylolisthesis L4 5 which makes jewelry to her lower extremity symptoms. Advised see if she has some improvement with dedicated steroid medication and we will start that through the IV. I would also like to have interventional pain management see her to see if the possibility of epidural steroid injection could be helpful at the L4 5 level for her lower extremities. Therapy should continue to work with her to try to mobilize and strengthen as well.
[2019-04-08 17:06] LABS: Glucose,Whole Blood 124 mg/dL (75-99)
[2019-04-08 19:53] LABS: Glucose,Whole Blood 202 mg/dL (75-99)
[2019-04-08] MEDS: methylPREDNISolone SOD SUCCI 125 MG/2 ML VIAL IV SCH (20:19)
--- NOTE | 2019-04-08 23:20 | PN ---
PROGRESS NOTE DATE OF SERVICE: 04/08/2019. This 78-year-old woman who was admitted with significant diffuse progressive peripheral neuropathy, also had significant difficulties and weakness also. No chest pain. No palpitation. PT/OT evaluating the patient for possible ECF rehab. EXAM: Alert and oriented times three. Pulse 82, blood pressure 159/70, respirations 17, temperature 97.9, pulse ox 94% on room air. HEENT: Conjunctivae normal. NECK: No jugular venous distention. CARDIOVASCULAR: S1, S2 muffled. RESPIRATORY: Breath sounds diminished in the bases. A few scattered rhonchi. No crackles. Abdomen is soft. Nontender. LEGS: Diffusely weak and wasting and weakness. lower limb present. Sensory abnormalities also present. LABS: Glucose 181,105. ASSESSMENT: 1. Significant diffuse progressive peripheral neuropathy, possible diabetic peripheral neuropathy. 2. Significant gait dysfunction and weakness. 3. Diabetes type 2. 4. Hyponatremia. 5. History of appendectomy. 6. History of hysterectomy. 7. History of tonsillectomy. 8. History of ectopic . RECOMMENDATIONS AND DISCUSSION: Recommend to continue current medications, symptomatic treatment. Otherwise, at this time, I recommend continue with PT/OT evaluation, possible ECF rehab. Guarded prognosis. Further recommendations to follow. MMODL / IJN: [id number] / MTDD
[2019-04-09 06:52] LABS: Glucose,Whole Blood 234 mg/dL (75-99)
[2019-04-09 07:56] LABS: Basophils % (A) 0 %; Eosinophils % (A) 0 %; HCT 42.2 % (34.0-46.0); HGB 13.8 gm/dL (11.4-16.0); Lymphocytes # (A) 0.9 k/uL (1.0-4.8); Lymphocytes % (A) 12 %; MCH 28.7 pg (25.0-35.0); MCHC 32.7 g/dL (31.0-37.0); MCV 87.7 fL (80.0-100.0); Mean Platelet Volume 7.5; Monocytes # (A) 0.3 k/uL (0-1.0); Monocytes % (A) 3 %; Neutrophils # (A) 6.1 k/uL (1.3-7.7); Neutrophils % (A) 83 %; Platelet Count 272 k/uL (150-450); RBC 4.81 m/uL (3.80-5.40); WBC 7.3 k/uL (3.8-10.6)
[2019-04-09] MEDS: HEPARIN SODIUM,PORCINE 5,000 UNIT/ML 1 ML VIAL SQ SCH ×2 (07:57→23:11)
[2019-04-09] MEDS: MULTIVITAMINS, THERA 1 EACH TAB PO SCH (07:57)
[2019-04-09] MEDS: FOLIC ACID 1 MG TAB PO SCH (07:57)
[2019-04-09] MEDS: THIAMINE 100 MG TAB PO SCH (07:57)
[2019-04-09] MEDS: PANTOPRAZOLE 40 MG TABLET PO SCH (07:57)
[2019-04-09] MEDS: methylPREDNISolone SOD SUCCI 125 MG/2 ML VIAL IV SCH ×2 (07:57→22:41)
[2019-04-09] MEDS: INSULIN ASPART (NovoLOG) 100 UNIT/ML VIAL SQ SCH ×4 (07:58→22:40)
[2019-04-09 08:08] LABS: African American GFR (CKD) >90 (>60 ml/min/1.73 sqM); Anion Gap 9 mmol/L; Blood Urea Nitrogen 26 mg/dL (7-17); Calcium 9.9 mg/dL (8.4-10.2); Carbon Dioxide 28 mmol/L (22-30); Chloride 101 mmol/L (98-107); Glucose 240 mg/dL (74-99); Potassium 4.6 mmol/L (3.5-5.1); Sodium 138 mmol/L (137-145)
--- NOTE | 2019-04-09 09:04 | P.PN ---
Progress Note - Text Progress Note Date: 04/09/19 Patient is a very pleasant 78-year-old female who is seen and examined at bedside for follow-up evaluation in regards to her cervical and lumbar spines. Since being seen and examined yesterday she was started on Solu-Medrol IV. Since that time she feels her pain is significantly better controlled. She has active range of motion bilateral upper extremities without difficulty. She does continue to have significant difficulty with mobility and ambulation with the bilateral lower extremities. She states initially she started to experience weakness in the left foot that slowly progressed up the left leg during the summer of 2017. She states over the past 2 months she has began to experience some increased weakness of the right lower extremity. She denies any specific injuries. She was experiencing significant back pain which has improved with the start Solu-Medrol. Consultation has been placed with PT/OT, and pain management. Nursing states consultation is also been placed with psychiatry for depression. Patient is eating and voiding without difficulty. She did have some difficulty transferring to a bedside commode this morning due to weakness. Patient has been seen and examined by neurology. Physical exam: Patient is awake, alert, and oriented 3 Vital signs stable Good chest excursion with deep inspiration and expiration Examination of lumbar spine reveals skin is intact with no abrasions, lacerations, or bruises; no erythema, purulence or signs of infection Patient has significant difficulties lifting legs off the bed independently Patient is unable to perform active dorsiflexion and flexion of the toes of the left lower extremity Positive sustained range of motion with the right lower extremity but generally weaker Active full range of motion bilateral upper extremities without difficulty No signs or symptoms of DVT; no calf pain No pain with internal and external rotation of the hips bilaterally Neurovascularly intact Assessment: L4-5 grade 1-2 spondylolisthesis L4-5 central and bilateral neuroforaminal stenosis Bilateral lower extremity weakness greater on the left than the right Inability ambulate due to lower extremity weakness Diabetes mellitus History of polio Depression Plan: 1. We will currently planned to continue with conservative treatment at this time. Consultation has been placed for PT/OT. We discussed working with therapy to help increase her mobility. Her pain has been better controlled since starting on Solu-Medrol IV. She does continue to have significant weakness in bilateral lower extremities. Consultation has been placed with pain management yesterday. Patient is still waiting for this evaluation. Per nursing, patient is also waiting for consultation with psychiatry for depression. At this time we will plan to continue conservative treatment and try to avoid the possibility of surgical intervention at her lumbar spine. 2. Patient will continue to be seen and examined by medicine for her other medical diagnoses 3. Patient currently waiting for consultation with PT/OT, pain management, and psychiatry
--- NOTE | 2019-04-09 11:20 | P.PAINCN ---
History of Present Illness - Reason for Consult Consult date: 04/09/19 - History of Present Illness This is a 78-year-old female, with more than nine-month history of left lower extremity pain and weakness, started without any initiating event, and 2 months ago she reported that her symptoms became bilateral lower extremity pain and weakness, and she reported that the pain radiates from the back to the lower extremity, she is not able to ambulate because of the weakness and the pain, her symptoms does not have any radicular pattern, patient was diagnosed with peripheral neuropathy secondary to diabetes , also patient complaining of upper extremity numbness and tingling sensation , she tried Neurontin in the past and she had no benefit and she tried Lyrica and she had side effects from it ,she denies any change in the bowel movement or urination, she denies any fever or night sweats, and patient had MRI of the lumbar spine done at [facility] showed that she had lumbar subluxation at L4 and there is disc bulging at L3 4 L4 5 and L5-S1, and that is spinal stenosis and that is lumbar facet arthropathy at multilevels, patient was evaluated by orthopedic spine surgery and recommended lumbar epidural steroid injection Review of Systems REVIEW OF ORGAN SYSTEMS: CONSTITUTIONAL: No fevers or chills. No recent weight loss. EYES: History of troubles with vision. No glasses. HEENT: No difficulties with hearing. No nosebleeds. No difficulty swallowing. RESPIRATORY: Past pneumonia. Denies any troubles with breathing or dyspnea on exertion. CARDIOVASCULAR: Denies any chest pain, palpitations, or recent heart attacks. GASTROINTESTINAL: Denies fatty food intolerance. Has change in bowel habits and gas bloat. GENITOURINARY: Denies any blood in urine. Has increased urinary frequency. NEUROLOGICAL: Reports lower extremities weakness , no numbness. No seizure disorders or headaches. MUSCULOSKELETAL: Has back pain, . SKIN: Past t skin cancer. No rash. PSYCHIATRIC: Denies current depression or suicidal thoughts. ENDOCRINE: Denies current thyroid disorders. Denies any blood sugar glucose intolerance. HEME/LYMPHATIC: Denies any lumps and bumps around the neck. History of deep venous thrombosis. ALLERGY/IMMUNOLOGY: No immunoglobulin therapy. No immune deficiencies. BREAST: Denies current breast lumps, pain or nipple discharge. Physical Examinations : Constitutiona : Cooperative , not in acute distress . HEENT : nech : supple , no Lymphadenopathy , normal thyroid size . eyes : no ptosis , no icterus, no photophobia . ENT : normal of hearing , normal oropharynx , no Thrush . Respiratory : Chest clear to auscultations Bilaterally , no wheezing , no Rhonchi . Cardiovascula : regular rate and rhythem , S1 , S2 , no S3 , no S4. Gastrointestina : abdomen soft no tenderness , bowel sounds , no organomegally . Genitourinary : Defferred . neurologic : Cranial nerve II to XII intact , no focal neurological deffecit . psychatric : alert , oriented X 3 , appropriate affect , intact judgment and insight . Lymphatic : no Lymphadenopathy . musculoskeltal : Cervical Spine motor stregnth in the deltoid and biceps, 4/5 right side , 4/5 Left side motor stregnth biceps and the wrist extensors normal right side ,normal left side . motor stregnth in the triceps muscle . normal Right side , normal Left side deep tendon reflexes normal at the biceps , normal at Brachioradialis , normal at triceps. cervical facet loading test: Positive Bilaterally Spurling test positive bilaterally. Neck distraction test positive bilaterally. Lumber spine moter stegnth lower extremities ,thigh and legs 2-3 /5 Right side , 1-2/5 Left side Decreased sensation in the lower extremity bilaterally from the mid thigh and distal leg positive lumber facet Loading Test Past Medical History Past Medical History: Diabetes Mellitus Additional Past Medical History / Comment(s): neuropathy History of Any Multi-Drug Resistant Organisms: None Reported Past Surgical History: Appendectomy, Hysterectomy, Tonsillectomy Additional Past Surgical History / Comment(s): 2 ectopic pregnancies Past Psychological History: No Psychological Hx Reported Smoking Status: Never smoker Past Alcohol Use History: None Reported Past Drug Use History: None Reported Medications and Allergies Home Medications Medication Instructions Recorded Confirmed Type Aspirin EC [Ecotrin Low Dose] 81 - 162 mg PO HS 04/06/19 04/06/19 History Magnesium Complex 1 cap PO DAILY 04/06/19 04/06/19 History Nerve Renew 1 cap PO DAILY 04/06/19 04/06/19 History Nerve Repair 1 cap PO DAILY 04/06/19 04/06/19 History Allergies Allergy/AdvReac Type Severity Reaction Status Date / Time clonidine Allergy Unknown Verified 04/06/19 10:12 nitroglycerin Allergy Anaphylaxis Verified 04/06/19 10:12 Physical Exam Vitals: Vital Signs Temp Pulse Resp BP Pulse Ox 04/09/19 05:00 98.1 F 88 16 144/78 96 04/09/19 01:05 86 16 04/08/19 21:00 97.8 F 80 16 133/69 98 04/08/19 12:03 97.9 F 82 17 159/70 95 Intake and Output 04/08/19 04/09/19 04/09/19 22:59 06:59 14:59 Intake Total 440 Balance 440 Intake: Oral 440 Other: Voiding Method Bedpan Bedside Commode Bedside Commode Bedpan Bedpan # Voids 1 1 1 Results CBC & Chem 7: 04/09/19 07:15 04/09/19 07:15 Labs: Abnormal Lab Results - Last 24 Hours (Table) 04/08/19 04/08/19 04/08/19 Range/Units 11:05 17:04 19:52 Lymphocytes # (1.0-4.8) k/uL BUN (7-17) mg/dL Glucose (74-99) mg/dL POC Glucose (mg/dL) 105 H 124 H 202 H (75-99) mg/dL 04/09/19 04/09/19 04/09/19 Range/Units 06:48 07:15 07:15 Lymphocytes # 0.9 L (1.0-4.8) k/uL BUN 26 H (7-17) mg/dL Glucose 240 H (74-99) mg/dL POC Glucose (mg/dL) 234 H (75-99) mg/dL Comments: MRI of the lumbar spine= multilevel lumbar bulging disc disease L3 4 and L4 5 and L5-S1, multilevel lumbar facet arthropathy, and lumbar spinal stenosis, and L4 subluxation MRI of the cervical spine= cervical spondylosis Assessment and Plan Plan: Assessment and plan= lumbar degenerative disc disease, lumbar spinal stenosis, lumbar spondylosis with lumbar facet arthropathy, peripheral neuropathy Cervical spondylosis Patient could benefit from lumbar epidural steroid injection under fluoroscopy guidance at the L4 5 level, procedure risk and benefits and alternatives discussed with the patient and she agreed with proceeding Time with Patient: Greater than 30 PQRS Measure Charge Sheet PQRS Narrative: Smoking Status Never smoker Blood Pressure [Left Arm] 144/78 Blood Pressure 179/80 Pain Intensity [Bilateral Leg] 0 Pain Intensity 3 Pain Scale Used Numeric (1 - 10) Scale Used Numeric (1 - 10) Home Medications: Ambulatory Orders Aspirin EC [Ecotrin Low Dose] 81 - 162 mg PO HS 04/06/19 Magnesium Complex 1 cap PO DAILY 04/06/19 Nerve Renew 1 cap PO DAILY 04/06/19 Nerve Repair 1 cap PO DAILY 04/06/19
[2019-04-09 11:21] LABS: Glucose,Whole Blood 217 mg/dL (75-99)
--- NOTE | 2019-04-09 12:02 | P.PCN ---
Date of Procedure: 04/09/19 Procedure(s) Performed: PREOPERATIVE DIAGNOSIS: 1- Lumbar Degenerative Disc Diseases 2-Lumbar spondylosis with Facet arthropathy without myelopathy 3-lumbar spinal stenosis. 4-peripheral neuropathy POSTOPERATIVE DIAGNOSIS: Same as pre-op diagnoses PROCEDURE 1. Lumbar epidural steroid injection under fluoroscopic guidance at the L4-5 level. (Fluoroscopy imaging was available in radiology department) 2. Lumbar epidurogram. ANESTHESIA: Local with 1% lidocaine 3 ml only . EBL: Minimal PROCEDURE INDICATION: The patient with low back pain and radiculitis symptoms unresponsive to conservative treatment. Fluoroscopy was used to optimize visualization of the needle placement and to maximize safety. PROCEDURE DESCRIPTION / TECHNIQUE: The patient was seen and identified in the preoperative area. Risks, benefits, complications including but not limited to infections ,bleeding ,allergic reaction to the medications ,nerve damage and not complete pain releife , and alternatives were discussed with the patient. The patient agreed to proceed with the procedure and signed the consent. IV was started, and vital signs were stable. Patient was taken to the OR and time out was completed. The patient was placed in the prone position on procedure table and a pillow was placed under the abdomen to reduce lumbar lordosis. The lumbosacral area was prepped and draped in the usual sterile fashion.ere closely monitored during the procedure. . Vital signs was monitered during the entire procedure. Using anterior-posterior fluoroscopy, the L4-5 interlaminar space was identified and the skin over this site was marked and then infiltrated with 1% lidocaine subcutaneously. Subsequently, a 20-gauge Tuohy epidural needle was inserted and advanced toward the epidural space using the ``Loss of resistance technique and guided by AP and lateral fluoroscopy. The correct needle position in the epidural space was verified with the injection of 2 mL of the water soluble contrast dye Isovue 200 contrast and observing an excellent epidurogram with the epidural spread of the dye, after negative aspiration for blood and CSF and in the absence of paresthesias. Again after negative aspiration, a 6 ml mixture containing 40 mg of Depo-medrol , and 2 ml of preservative free Normal Saline, and 2 ml of preservative free lidocaine 1% solution was injected and a washout of epidurogram was seen. Needle was withdrawn intact, skin was cleansed, and bandages were applied. COMPLICATIONS: None DISPOSITION / PLANS: The patient was placed in a supine position and transferred to the recovery area in a stable condition for observation. There was no evidence of lower extremity motor or sensory deficit after the procedure. Patient was discharged from the recovery room after meeting discharge criteria. Home discharge instructions were given to the patient by the staff. The patient was reexamined prior to discharge. The patient will schedule a follow up in the clinic in 2-4 weeks.
--- NOTE | 2019-04-09 12:11 | FL ---
EXAMINATION TYPE: FL guided pain mgmt statistic DATE OF EXAM: 04/09/2019 CLINICAL HISTORY: Low back pain. TECHNIQUE: Fluoroscopy. COMPARISON: None. FINDINGS: Fluoroscopic guidance was provided during pain relief procedure performed by Dr. Perez . A total of 3 seconds of fluoroscopic time was utilized during the procedure and two spot images ar e acquired. Images acquired shows needle localization at L5 level. IMPRESSION: As Above.
[2019-04-09] MEDS: HYDROmorphone 0.5 MG/0.5 ML SYRINGE IVP PRN (17:13)
[2019-04-09] MEDS: ASPIRIN 81 MG PO SCH (17:13)
--- NOTE | 2019-04-09 17:14 | P.CN ---
Psychiatric Consult - . 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 HISTORY OF PRESENT ILLNESS: This patient is a 78-year-old female who presented to the emergency Department with weakness and pain in her extremities which have increased over time. Neurology and pain management were consulted, pain management gave patient an epidural steroid injection earlier today. Psychiatry was consulted for "depression". Patient's nurse described patient as having anxiety complaining of different somatic symptoms including chest pain/heaviness, headaches shortness of breath. Senior Data Mining Analyst sought patient in the bedside who appeared to be calm and somewhat cooperative initially however asked policy writer sales to leave several times during the interview but was easily distracted and told different stories and engaged with policy writer sales. Patient claims that she cannot talk to policy writer sales as she feels like she is having a stroke at this time and was asking for aspirin to be given to help her with her stroke. Patient was somatically preoccupied and spoke of her chest pain and heaviness, headaches or shortness of breath however patient appeared to be resting comfortably, somewhat anxious. Patient admitted to having anxiety and states that her symptoms worsened since her 2 months ago and she had to move to a senior center which she does not like. Patient states that she does not like to take any medications mainly allopathic medications. Patient did endorse wanting to stick to natural supplements and showed policy writer sales 2 bottles of magnesium and another nutritional supplement which she describes "can repair my nerves". Patient denies any changes in her mood and states she is not depressed and denies any manic symptoms. Patient claims she sleeps poorly at night and has a fair appetite. At this time patient denies any suicidal or homicidal ideations intent or plan and denies any auditory or visual hallucinations. PAST PSYCHIATRIC HISTORY: Patient denies ever seeing a psychiatrist at the past denies any previous suicide attempts or being on any psychotropic medications. PAST MEDICAL HISTORY: Diabetes mellitus, neuropathy. ALLERGIES: Clonidine and nitroglycerin. CHEMICAL DEPENDENCY HISTORY: denies. FAMILY PSYCHIATRIC/SUBSTANCE USE HISTORY: denies. SOCIAL HISTORY: Patient is recently claims her 2 months ago, has 1 son and currently lives in a seniors center in [facility]. 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 MENTAL STATUS EXAM: General Appearance: Patient appears to be stated age is alert, and directable. Patient has fair hygiene and grooming and wearing hospital gown. Behavior: Patient is anxiously lying in bed without any agitated behavior. Speech: Patient's speech is fluent and nonpressured. Mood/Affect: Patient reports their mood is "fine", affect is congruent and p atient appears to be anxious. Suicidality/Homicidality: Patient denies having any suicidal or homicidal ideation intent or plan. Perceptions: Patient denies any auditory or visual hallucinations. Though content/process: There is no evidence of any delusional thought content and thought process is linear and goal-directed. Patient is somatically preoccupied and is believing that she is having a stroke, requesting aspirin. Memory and concentration: AOX3, grossly intact for the purposes of this session. Can spell "WORLD" backwards Judgment and insight: Poor IMPRESSIONS: Anxiety disorder unspecified rule out somatic symptom disorder vs. illness anxiety disorder vs. generalized anxiety disorder vs. panic attacks. PLAN: -At this time patient patient does NOT meet criteria for inpatient psychiatric admission. -It appears that patient is preoccupied with her symptoms and has poor insight into her condition. Patient spoke several times about a stroke however is not endorsing specific stroke symptoms except for a headache. A large differential is at play at this time for diagnosis and does appear the patient is anxious underlying it all. Senior Data Mining Analyst spoke with patient about medications however patient is dismissive and states that she will think about it and does not trust allopathic medicine. Senior Data Mining Analyst attempted to engage patient with breathing/relaxation techniques which can be done however patient claimed that she was too focused on her stroke symptoms and did not want to learn them at this time. -Would recommend the following medication changes/additions: Can try Zoloft 25 mg for 3 days daily for mood/anxiety with plan to titrate up as tolerated to 50 mg or higher. Patient is unlikely to take this medication however we can offer it to her. Another option that will be ordered is BuSpar 15 mg twice a day for anxiety symptoms. -Psychiatry will sign off at this point Thank you for the consult
[2019-04-09] MEDS ORDERED: busPIRone HCl 5 MG TAB PO PRN (17:16)
[2019-04-09 17:24] LABS: Glucose,Whole Blood 299 mg/dL (75-99)
--- NOTE | 2019-04-09 17:34 | PN ---
PROGRESS NOTE DATE OF SERVICE: 04/09/2019 This 78-year-old woman who was admitted with significant diffuse progressive weakness and wasting was also complaining of chest pain which was left-sided, radiating to the left arm, with left arm numbness after exertion today. The patient had lumbar epidural injection by Pain Management today. Multiple consultants, including Neurology, psychiatry consultation underway. Past medical history reviewed. REVIEW OF SYSTEMS: CARDIOVASCULAR SYSTEM: As mentioned earlier. RESPIRATORY SYSTEM: As mentioned earlier. GI: No nausea, vomiting. : No dysuria or retention. NERVOUS SYSTEM: No numbness, weakness. CURRENT MEDICATIONS: Current medications include: 1. Tylenol p.r.n. 2. [place] 5 mg q.6 p.r.n. 3. Xanax 0.25 t.i.d. 4. Folic acid 1 mg daily. 5. Heparin 5000 units subcutaneously b.i.d. 6. NovoLog before meals and at bedtime. 7. Solu-Medrol 60 IV b.i.d. 8. Multivitamins 1 p.o. daily. 9. Protonix 40 mg daily. 10.Restoril 15 mg at bedtime. 11.Vitamin B1 100 mg p.o. daily. PHYSICAL EXAMINATION: Patient is alert and oriented x3. Pulse is 101, blood pressure 152/70, respiration 20, temperature 97.9, pulse ox 95% on room air. HEENT: Conjunctivae normal. NECK: No jugular venous distention. CARDIOVASCULAR SYSTEM: S1, S2 muffled. RESPIRATORY SYSTEM: Breath sounds diminished at the bases. Bilateral scattered rhonchi and crackles. ABDOMEN: Soft, non-tender. No mass palpable. LEGS: No edema. No swelling. NERVOUS SYSTEM: Higher functions as mentioned earlier. Moves all 4 limbs. No focal motor or sensory deficit. LYMPHATICS: No lymph node palpable in neck, axillae or groin. SKIN: No ulcer, rash, bleeding. JOINTS: No active deforming arthropathy. LABS: CBC within normal limits. Sodium 138, potassium 4.6, glucose 240. ASSESSMENT: 1. Diffuse progressive weakness with peripheral neuropathy; possibly diabetic peripheral neuropathy. 2. Significant gait dysfunction and muscle weakness. 3. Diabetes mellitus, type 2. 4. Chest pain; possible unstable angina; possibly musculoskeletal. 5. Hyponatremia. 6. History of appendectomy. 7. Status post lumbar epidural steroid injection for significant lumbar degenerative joint disease, spondylosis and lumbar spinal stenosis and peripheral neuropathy. 8. History of hysterectomy. 9. History of tonsillectomy. 10.History of ectopic . RECOMMENDATIONS AND DISCUSSION: In this 78-year-old woman who presented with multiple medical issues, at this time I recommend to continue current management, continue symptomatic treatment. I recommend EKG, a set of troponins, and also cardiology consultation. Continue to monitor. Symptomatic treatment. PT/OT evaluation and possible ECF rehab. I would also recommend a psychiatric consultation. The patient was started on IV steroids. We will monitor the blood sugars closely. DVT prophylaxis. The prognosis is guarded because of multiple complex medical issues. Further recommendations to follow. MMODL / IJN: [id number] / ANGY
[2019-04-09 20:19] LABS: Glucose,Whole Blood 217 mg/dL (75-99)
[2019-04-09] MEDS: MIRTAZAPINE 15 MG TAB PO SCH (22:39)
[2019-04-09] MEDS: HEPARIN SOD,PORK IN 0.45% NACL 25,000 UNIT in 0.45% NACL 1 250ML.BAG IV SCH (22:53)
[2019-04-10 06:30] LABS: Glucose,Whole Blood 309 mg/dL (75-99)
[2019-04-10] MEDS: PANTOPRAZOLE 40 MG TABLET PO SCH (06:57)
[2019-04-10] MEDS: HYDROmorphone 0.5 MG/0.5 ML SYRINGE IVP PRN ×2 (07:00→20:24)
[2019-04-10] MEDS: INSULIN ASPART (NovoLOG) 100 UNIT/ML VIAL SQ SCH ×4 (07:00→21:03)
[2019-04-10] MEDS: methylPREDNISolone SOD SUCCI 125 MG/2 ML VIAL IV SCH ×2 (09:07→20:05)
[2019-04-10] MEDS: SERTRALINE 25 MG TAB PO SCH (09:13)
[2019-04-10] MEDS: MULTIVITAMINS, THERA 1 EACH TAB PO SCH (09:13)
[2019-04-10] MEDS: FOLIC ACID 1 MG TAB PO SCH (09:13)
[2019-04-10] MEDS: ASPIRIN 81 MG PO SCH (09:34)
[2019-04-10] MEDS ORDERED: ATORVASTATIN 80 MG TAB PO STA (10:06)
[2019-04-10] MEDS ORDERED: NITROGLYCERIN SL TABS 0.4 MG TAB SUBLINGUAL PRN (10:06)
[2019-04-10] MEDS ORDERED: ALPRAZolam 0.25 MG TAB PO PRN (10:06)
[2019-04-10] MEDS ORDERED: ASPIRIN 325 MG TAB PO STA (10:06)
[2019-04-10] MEDS ORDERED: SODIUM CHLORIDE 0.9% 1,000 ML in EMPTY BAG 1 BAG IV ONE (10:06)
[2019-04-10] MEDS ORDERED: ALPRAZolam 0.5 MG TAB PO PRN (10:06)
--- NOTE | 2019-04-10 10:35 | CONS ---
CONSULTATION Mrs. Mari is a 78-year-old female who is seen for cardiac evaluation. This patient's medical records reviewed. This patient has a history of diabetes, peripheral neuropathy, hysterectomy. Patient just recently moved to this area. Patient was admitted with a complaint of progressive weakness and numbness in the lower limb for last several weeks. Patient has a lumbar spinal stenosis. She got an epidural injection yesterday and about a couple of hours later, patient started having discomfort in the head and then she had significant discomfort in the chest which was radiating to the jaw and both arms. Patient received Dilaudid with some relief. Subsequently, she had again a reoccurrence of the pain. At present, patient is comfortable. There is no prior history of myocardial infarction. History of diabetes and history of polio. PATIENT'S PAST MEDICAL HISTORY: Includes history of diabetes, neuropathy, history of polio and hysterectomy. PATIENT'S HOME MEDICATIONS: Included aspirin and magnesium. SOCIAL HISTORY: Patient does not smoke. PHYSICAL EXAMINATION: At present reveals a 78-year-old female who does not appear to be in any acute distress. Patient's heart rate is 80 per minute, blood pressure is 154/77 mmHg. HEENT examination is negative. Neck is supple. There is no increase in jugular venous pressure. Both the carotid pulses are felt, there is no bruit. Chest is symmetrical. Heart, the PMI is not felt. First and second heart sounds are normal. There is no evidence of any murmur. Lungs are clinically clear to auscultation and percussion. Abdomen is soft. Liver and spleen are not enlarged. Bowel sounds are heard. Extremities, peripheral pulsations are 2+. EKG shows normal sinus rhythm without any acute ischemic changes. Patient's initial troponin was normal. Subsequent troponin is 0.670 and 1330. IMPRESSION: This patient has history suggestive of non ST-segment elevation myocardial infarction. Patient has a history of diabetes. Patient currently is getting heparin drip. We will add Lipitor 80 mg daily and Lopressor 25 mg b.i.d. Patient is advised further evaluation with a cardiac catheterization for definitive diagnosis. Echo and Doppler study will be also done. We will also discuss with Dr. Perez to make sure that it is okay with him to give the patient aspirin and Plavix. MMODL / IJN: [id number] /
[2019-04-10 11:37] LABS: Glucose,Whole Blood 201 mg/dL (75-99)
[2019-04-10] MEDS: THIAMINE 100 MG TAB PO SCH (12:00)
--- NOTE | 2019-04-10 12:01 | ECHOF ---
Referral Reason:positive trops MEASUREMENTS -------- HEIGHT: 165.1 cm WEIGHT: 64.9 kg BP: RVIDd: 3.1 cm (< 3.3) IVSd: 1.0 cm (0.6 - 1.1) LVIDd: 3.7 cm (3.9 - 5.3) LVPWd: 1.0 cm (0.6 - 1.1) IVSs: 1.8 cm LVIDs: 2.3 cm LVPWs: 1.4 cm LA Diam: 3.9 cm (2.7 - 3.8) LAESV Index (A-L): 31.21 ml/m Ao Diam: 3.3 cm (2.0 - 3.7) AV Cusp: 1.9 cm (1.5 - 2.6) MV EXCURSION: 13.189 mm (> 18.000) MV EF SLOPE: 49 mm/s (70 - 150) EPSS: 1.3 cm MV E Ritchie: 1.11 m/s MV DecT: 185 ms MV A Ritchie: 1.36 m/s MV E/A Ratio: 0.81 FINDINGS -------- Sinus rhythm. This was a technically good study. The left ventricular size is normal. Left ventricular wall thickness is normal. Overall left vent ricular systolic function is low-normal with, an EF between 50 - 55 %. The right ventricle is normal in size. LA is midly dilated 29-33ml/m2. The right atrium is normal in size. Interatrial and interventricular septum intact. The aortic valve is trileaflet and appears structurally normal. The mitral valve leaflets are mildly thickened. Mild mitral annular calcification present. The tricuspid valve appears structurally normal. There is no pulmonic regurgitation present. The aortic root size is normal. Normal inferior vena cava with normal inspiratory collapse consistent with estimated right atrial pre ssure of 5 mmHg. There is no pericardial effusion. CONCLUSIONS -------- 1. Sinus rhythm. 2. This was a technically good study. 3. The left ventricular size is normal. 4. Left ventricular wall thickness is normal. 5. Overall left ventricular systolic function is low-normal with, an EF between 50 - 55 %. 6. The right ventricle is normal in size. 7. LA is midly dilated 29-33ml/m2. 8. The right atrium is normal in size. 9. Interatrial and interventricular septum intact. 10. The aortic valve is trileaflet and appears structurally normal. 11. The mitral valve leaflets are mildly thickened. 12. Mild mitral annular calcification present. 13. The tricuspid valve appears structurally normal. 14. There is no pulmonic regurgitation present. 15. The aortic root size is normal. 16. Normal inferior vena cava with normal inspiratory collapse consistent with estimated right atrial pressure of 5 mmHg. 17. There is no pericardial effusion. THERAPEUTIC SALES SPECIALIST: Leigh Field RDCS
--- NOTE | 2019-04-10 12:24 | P.PN ---
Progress Note - Text Progress Note Date: 04/10/19 Patient is a very pleasant 78-year-old female who is seen and examined at bedside for follow-up evaluation in regards to her cervical and lumbar spines. Since being seen and examined yesterday she has been seen and examined by pain management. She had an epidural injection. She states her pain has significantly improved following the epidural injection. She has active range of motion bilateral upper extremities without difficulty. She does continue to have significant difficulty with mobility and ambulation with the bilateral lower extremities. She states initially she started to experience weakness in the left foot that slowly progressed up the left leg during the summer of 2017. She states over the past 2 months she has began to experience some increased weakness of the right lower extremity. She denies any specific injuries. She continues to have significant difficulty with mobilization and requires 2 patient assist to transfer to a bedside commode. Since being seen examined yesterday she has had further evaluation by medicine. Troponin levels did show elevated troponin at 0.67 and increased to 1.33. She was transferred to [facility] care. Patient has been discussed in detail medicine today. Medicine states patient is scheduled for heart catheterization today. She has been seen and examined by cardiology as well. She underwent an echocardiogram today. Patient has been seen and examined by neurology. Physical exam: Patient is awake, alert, and oriented 3 Vital signs stable Good chest excursion with deep inspiration and expiration Examination of lumbar spine reveals skin is intact with no abrasions, lacerations, or bruises; no erythema, purulence or signs of infection Patient has significant difficulties lifting legs off the bed independently Patient is unable to perform active dorsiflexion and flexion of the toes of the left lower extremity Positive sustained range of motion with the right lower extremity but generally weaker Active full range of motion bilateral upper extremities without difficulty No signs or symptoms of DVT; no calf pain No pain with internal and external rotation of the hips bilaterally Neurovascularly intact Assessment: L4-5 grade 1-2 spondylolisthesis L4-5 central and bilateral neuroforaminal stenosis Bilateral lower extremity weakness greater on the left than the right Inability ambulate due to lower extremity weakness Diabetes mellitus History of polio Depression Elevated troponin levels Plan: 1. Patient has been discussed in detail with Dr. Lan Gong. Patient has been seeing him by pain management has undergone an injection at her lumbar spine. Since that time her pain is much better controlled. She does continue to have significant weakness in bilateral lower extremities. She does have evidence of change at her lumbar spine most significant at L4-5 with a grade 1-2 spondylolisthesis and central and bilateral neural foraminal stenosis. Although she has significant changes at the L4-5 level, all of her lower extremity weakness symptoms do not correlate well with this single level specifically. At this time we'll plan to obtain an MRI of the thoracic spine to rule out possible cord compression or another cause for her bilateral lower extremity weakness. Following the completion of the thoracic MRI, we will review this imaging and follow-up with the patient to discuss treatment options. 2. Patient will continue to be seen and examined by medicine for her other medical diagnoses 3. Patient will continue be seen examined by cardiology and is scheduled for cardiac catheterization today; patient also recently underwent echocardiogram today
[2019-04-10] MEDS ORDERED: fentaNYL (PF) 50 MCG/ML 2 ML AMP IV ONE (13:30)
[2019-04-10] MEDS ORDERED: MIDAZOLAM (PF) 2 MG/2 ML VIAL IV ONE (13:30)
[2019-04-10] MEDS ORDERED: IV FLUID CONTINUATION 800 ML IV ONE (13:31)
[2019-04-10] MEDS ORDERED: LIDOCAINE 1% INJ 10MG/ML (20 ML MDV) SQ ONE (13:33)
[2019-04-10] MEDS ORDERED: METOPROLOL TARTRATE 5 MG/5 ML VIAL IVP ONE (13:43)
[2019-04-10] MEDS ORDERED: NITROGLYCERIN SL TABS 0.4 MG TAB SUBLINGUAL ONE (13:51)
[2019-04-10] MEDS ORDERED: IOPAMIDOL-370 125ML BTL INJ ONE (13:53)
[2019-04-10] MEDS ORDERED: RX INFO: IV CONTRAST WAS GIVEN 1 EACH MISC MISCELLANE PRN (14:09)
[2019-04-10 14:21] LABS: Glucose,Whole Blood 231 mg/dL (75-99)
--- NOTE | 2019-04-10 14:35 | PN ---
PROGRESS NOTE DATE OF SERVICE: 04/10/2019. This is a 78-year-old woman who was admitted with diffuse progressive weakness and peripheral neuropathy, is also having chest pain yesterday. Cardiology is planning a cardiac catheterization. No chest pain. No palpitations. No fever at this time. The troponins is elevated to 1.[address] elevation myocardial infarction. PHYSICAL EXAM: Alert and oriented x3. Pulse is 97, blood pressure 144/77, respirations 16, temperature 98.2, pulse ox 98% on 2 L. HEENT: Conjunctivae normal. NECK: No jugular venous distension. CARDIOVASCULAR SYSTEM: S1, S2, muffled. RESPIRATORY: Breath sounds diminished at the bases, no rhonchi. ABDOMEN: Soft, nontender. LEGS: No edema, no swelling. NERVOUS SYSTEM: Unchanged. LABS: Troponin 1.360. ASSESSMENT: 1. Diffuse progressive weakness and peripheral neuropathy, possible diabetic peripheral neuropathy. 2. Chest pain, possible acute non ST elevation myocardial infarction with troponin 1.330. 3. Significant gait dysfunction with muscle weakness. 4. Diabetes mellitus type 2. 5. Hyponatremia. 6. History of appendectomy. 7. Status post lumbar epidural steroid injection for significant lumbar degenerative joint disease, spondylosis, and lumbar spine stenosis and peripheral neuropathy. 8. History of hysterectomy. 9. History of tonsillectomy. 10.History of ectopic . RECOMMENDATION: Recommend to continue current management, continue monitoring and symptomatic treatment. Otherwise, recommend repeat labs. Acute complaints, no protocol. Guarded prognosis because of multiple complex medical issues. Further recommendations to follow. MMODL / IJN: [id number] /
[2019-04-10 17:09] LABS: Glucose,Whole Blood 238 mg/dL (75-99)
[2019-04-10] MEDS: SODIUM CHLORIDE 0.9% 1,000 ML IV SCH (17:24)
--- NOTE | 2019-04-10 18:50 | P.GSCN ---
<Yobany Mayfield - Last Filed: 04/10/19 17:16> History of Present Illness Consult date: 04/10/19 Reason for Consult: Coronary artery disease with left main disease. Requesting physician: Cain Blum History of present illness: This is a 78-year-old female patient who is followed by Dr. Ihsan Klein on an outpatient basis. She has past medical history significant for hypertension, hyperlipidemia, polio, diabetes mellitus type 2 with an admission hemoglobin A1c of 8.1%, history of CVA in 2011 with no residual effects, peripheral neuropathy with progressive weakness and numbness to her bilateral lower extremities. The patient recently moved to the area from [facility] and has been living at an assisted living [facility]. She reports that she has been wheelchair bound for around 8 months due to lower extremity weakness. She denies any complaints of pain to her bilateral lower extremities but does report numbness and tingling and is complaining of episodes of shortness of breath. Due to her weakness to her lower extremities which as progressively gotten worse over the last 2 weeks she presented to the emergency department here at [facility]. She denies any pain, recent fever, chills, injury or trauma, lightheadedness or palpitations. The patient also reports that she has been some upper extremity weakness as well over the past 2 weeks. Due to her weakness in her lower extremities and MRI was completed which showed lumbar subluxation at L4 and disc bulging at L3, L4, L5 and L5 to S1. It also showed spinal stenosis. Subsequently on 04/09/2019 the patient underwent a lumbar epidural steroid injection under fluoroscopic guidance performed by anesthesia pain management. Postoperatively the patient starting having complaints of a headache which radiated to her jaw, chest and bilateral upper extremities. Due to the complaints of chest pain a consult was placed to cardiology. A 2-D echocardiogram was completed which showed her to have an overall left ventric ular systolic function to be low normal with an ejection fraction between 50 and 55%. Today for further evaluation she underwent a cardiac catheterization which demonstrated her to have an 80% stenosis to her left main coronary artery, a 90% stenosis to her posterior left ventricular branch, and 80% stenosis to her obtuse marginal branch, a 90% stenosis to her circumflex coronary artery and a 90% stenosis to her ostial left anterior descending coronary artery. Post operative cardiac catheterization a consult was placed to Dr. Luther Weiner from cardiothoracic surgery to review her films and evaluate the patient for possible myocardial vascularization surgery. Review of Systems A 14 point review of systems was completed and was negative except as mentioned in the HPI. Past Medical History Past Medical History: CVA/TIA, Diabetes Mellitus, Hyperlipidemia, Hypertension, Neurologic Disorder (Peripheral neuropathy) Additional Past Medical History / Comment(s): neuropathy, history of CVA in 2012 and history of polio. History of Any Multi-Drug Resistant Organisms: None Reported Past Surgical History: Appendectomy, Hysterectomy, Tonsillectomy Additional Past Surgical History / Comment(s): 2 ectopic pregnancies Past Psychological History: No Psychological Hx Reported Smoking Status: Never smoker Past Alcohol Use History: None Reported Past Drug Use History: None Reported Medications and Allergies Home Medications Medication Instructions Recorded Confirmed Type Aspirin EC [Ecotrin Low Dose] 81 - 162 mg PO HS 04/06/19 04/06/19 History Magnesium Complex 1 cap PO DAILY 04/06/19 04/06/19 History Nerve Renew 1 cap PO DAILY 04/06/19 04/06/19 History Nerve Repair 1 cap PO DAILY 04/06/19 04/06/19 History Allergies Allergy/AdvReac Type Severity Reaction Status Date / Time clonidine Allergy Unknown Verified 04/06/19 10:12 nitroglycerin Allergy Anaphylaxis Verified 04/06/19 10:12 Surgical - Exam Vital Signs Temp Pulse Resp BP Pulse Ox 98.1 F 102 H 18 138/84 98 04/06/19 09:35 04/06/19 09:35 04/06/19 09:35 04/06/19 09:35 04/06/19 09:35 - General well developed, well nourished, no distress, no pain, chronically ill - Eyes PERRL, normal ocular movement - ENT normal pinna, normal nares, normal mucosa, no hearing loss, no congestion - Neck Neck is supple, no lymphadenopathy. no masses, no bruits, trachea midline, no venous distension - Respiratory Lung sounds essentially clear throughout. Respirations are symmetrical and n onlabored. - Cardiovascular Regular rhythm and rate. S1 and S2 present, negative for S3, gallop or murmur. - Abdomen Abdomen soft, nontender and nondistended. Active bowel sounds present all 4 abdominal quadrants. No guarding or rigidity. No hepatomegaly. - Genitourinary Deferred - Rectum Deferred - Integumentary no rash, no growths, no abnormal pigmentation - Neurologic Cranial nerves II-XII intact, no focal deficits. - Musculoskeletal generalized weakness to her bilateral lower extremities. - Psychiatric oriented to time, oriented to person, oriented to place, speech is normal, memory intact Results - Labs 04/09/19 07:15 04/09/19 07:15 Abnormal Lab Results - Last 24 Hours (Table) 04/09/19 04/09/19 04/09/19 Range/Units 17:21 20:18 21:12 APTT (22.0-30.0) sec POC Glucose (mg/dL) 299 H 217 H (75-99) mg/dL Troponin I 0.670 H* (0.000-0.034) ng/mL 04/10/19 04/10/19 04/10/19 Range/Units 03:29 03:29 06:29 APTT 59.3 H (22.0-30.0) sec POC Glucose (mg/dL) 309 H (75-99) mg/dL Troponin I 1.330 H* (0.000-0.034) ng/mL 04/10/19 04/10/19 04/10/19 Range/Units 11:34 14:17 16:56 APTT (22.0-30.0) sec POC Glucose (mg/dL) 201 H 231 H 238 H (75-99) mg/dL Troponin I (0.000-0.034) ng/mL - Imaging Chest x-ray: report reviewed, image reviewed US - kidney/bladder: image reviewed Assessment and Plan Assessment: 1. Coronary artery disease with left main disease 2. Non-ST segment elevation myocardial infarction this admission 3. Diffuse diabetic peripheral neuropathy 4. Diabetes mellitus type 2 5. Gait dysfunction and weakness 6. History of hypertension 7. History of hyperlipidemia 8. History of CVA 9. History of polio Plan: Patient was seen and examined. Her chart diagnostics were reviewed. She was seen and examined by Dr. Luther Weiner at her bedside in the intensive care unit. He reviewed the findings on the cardiac catheterization and 2-D echocardiogram with the patient. At this point preoperative testing has been initiated. Once her preoperative testing has been obtained a STS risk score will be calculated and discussed with the patient. Dr. Weiner has spoken with Dr. Blum regarding concerns of her limited mobility and her having been wheelchair bound for the last 8 months. Continue to optimize with medical management, continue aspirin, statin, and beta edgard. Encourage use of her incentive spirometry every hour while awake. Medical management and other comorbidities per primary care service. Thank you Dr. Blum for this consult and we'll look for tuberculosis. The care of your patient. Time with Patient: Greater than 30 <Luther Weiner - Last Filed: 04/13/19 13:25> Surgical - Exam Vital Signs Temp Pulse Resp BP Pulse Ox 98.1 F 102 H 18 138/84 98 04/06/19 09:35 04/06/19 09:35 04/06/19 09:35 04/06/19 09:35 04/06/19 09:35 Results - Labs 04/13/19 05:07 04/13/19 05:00 Abnormal Lab Results - Last 24 Hours (Table) 04/12/19 04/12/19 04/13/19 Range/Units 16:51 20:52 05:00 WBC (3.8-10.6) k/uL RBC (3.80-5.40) m/uL Hgb (11.4-16.0) gm/dL Hct (34.0-46.0) % BUN 30 H (7-17) mg/dL Creatinine 0.48 L (0.52-1.04) mg/dL Glucose 175 H (74-99) mg/dL POC Glucose (mg/dL) 250 H 184 H (75-99) mg/dL 04/13/19 04/13/19 04/13/19 Range/Units 05:07 06:47 11:29 WBC 11.5 H (3.8-10.6) k/uL RBC 3.25 L (3.80-5.40) m/uL Hgb 9.5 L (11.4-16.0) gm/dL Hct 28.8 L (34.0-46.0) % BUN (7-17) mg/dL Creatinine (0.52-1.04) mg/dL Glucose (74-99) mg/dL POC Glucose (mg/dL) 204 H 129 H (75-99) mg/dL Diabetes panel 04/13/19 Range/Units 05:00 Sodium 137 (137-145) mmol/L Potassium 4.2 (3.5-5.1) mmol/L Chloride 105 (98-107) mmol/L Carbon Dioxide 26 (22-30) mmol/L BUN 30 H (7-17) mg/dL Creatinine 0.48 L (0.52-1.04) mg/dL Glucose 175 H (74-99) mg/dL Calcium 8.7 (8.4-10.2) mg/dL Calcium panel 04/13/19 Range/Units 05:00 Calcium 8.7 (8.4-10.2) mg/dL Pituitary panel 04/13/19 Range/Units 05:00 Sodium 137 (137-145) mmol/L Potassium 4.2 (3.5-5.1) mmol/L Chloride 105 (98-107) mmol/L Carbon Dioxide 26 (22-30) mmol/L BUN 30 H (7-17) mg/dL Creatinine 0.48 L (0.52-1.04) mg/dL Glucose 175 H (74-99) mg/dL Calcium 8.7 (8.4-10.2) mg/dL Adrenal panel 04/13/19 Range/Units 05:00 Sodium 137 (137-145) mmol/L Potassium 4.2 (3.5-5.1) mmol/L Chloride 105 (98-107) mmol/L Carbon Dioxide 26 (22-30) mmol/L BUN 30 H (7-17) mg/dL Creatinine 0.48 L (0.52-1.04) mg/dL Glucose 175 H (74-99) mg/dL Calcium 8.7 (8.4-10.2) mg/dL Assessment and Plan Plan: The patient was seen and examined. The history and physical findings were verified. I agree with the above assessment and plan. The patient is a 78-year-old female who has a history of multiple medical problems including extreme progressive weakness in all of her extremities, who presented to the hospital for an epidural injection secondary to spinal stenosis. Following this procedure, she developed significant chest pain and was taken to the [facility] and found to have multivessel coronary artery disease. Upon further questioning, the patient states that she was wheelchair bound for 8 months. Her unfortunately and she subsequently went to an assisted living facility. She currently ambulates only several steps at a time with the assistance of a rolling walker. Her cardiac catheterization was personally reviewed. She does appear to have targets suitable for bypass, however given her history of non-ambulation, I'm concerned that she would not do well with open heart surgery. For this reason I will speak with Dr. Blum to determine if PCI as an option. In the meantime we will proceed with obtaining her standard preoperative workup. She may benefit from a neurology workup. Further recommendations will follow.
[2019-04-10] MEDS: MUPIROCIN 2% OINT 22 GM TUBE NASAL SCH (20:04)
[2019-04-10] MEDS: METOPROLOL TARTRATE 50 MG TAB PO SCH (20:05)
[2019-04-10] MEDS: MIRTAZAPINE 15 MG TAB PO SCH (20:22)
--- NOTE | 2019-04-10 20:25 | CC ---
CARDIAC CATHETERIZATION REPORT Mrs. Mari is a 78-year-old female who was admitted to the hospital with primarily weakness and symptoms of peripheral neuropathy. The patient also was found to have a lumbar spinal stenosis and she underwent an epidural injection yesterday. Subsequently the patient had moderate to severe chest discomfort. There were no EKG changes, but the cardiac enzymes were abnormal, suggestive of a fih-AO-umdzmtc-elevation myocardial infarction. In view of that, the patient was recommended to have a cardiac catheterization for definitive diagnosis. Echocardiogram did not show any wall motion abnormality with a normal left ventricular systolic function. Patient has a history of diabetes. PROCEDURE DESCRIPTION: The right groin was prepped and draped in the usual manner and the right femoral artery was entered using Seldinger technique and micropuncture needle under ultrasound guidance. A #6-Indian sheath was placed in. Selective coronary angiography was then performed in multiple projections and the left ventricular pressures were obtained. Patient tolerated the procedure well. Sheath was removed and good hemostasis was achieved with the use of Angio-Seal. HEMODYNAMICS: The left ventricular end-diastolic pressure was 12 mmHg prior to angiography. No gradient was noted across the aortic valve. SELECTIVE CORONARY ANGIOGRAPHY: Left main coronary artery has an eccentric 70% to 80% stenosis in its mid portion. LAD is a good-caliber blood vessel and has ostial stenosis of 80% to 90%. Circumflex coronary artery is a good-caliber blood vessel and gives rise to a good-sized obtuse marginal branch. The obtuse marginal branch has an 80% to 90% stenosis and distal circumflex coronary artery has a 90% stenosis. Right coronary artery is a good-caliber blood vessel and gives rise to good-sized PLV and PDA branches. The PLV branch has a 90% stenosis. FINAL IMPRESSION: This study reveals severe triple-vessel disease with 70% to 80% mid left main coronary artery stenosis. In view of the severe triple-vessel disease, patient is recommended to have coronary artery bypass surgery. We will get surgical consultation. I also discussed with the patient's son, who is in [place], [place], and explained to him the situation and her serious condition. MMODL / IJN: [id number] /
[2019-04-10] MEDS ORDERED: METOPROLOL TARTRATE 25 MG TAB PO SCH (21:00)
[2019-04-10 21:13] LABS: Glucose,Whole Blood 214 mg/dL (75-99)
[2019-04-10 21:34] LABS: Appearance,Urine Clear (Clear); Bilirubin,Urine Negative (Negative); Blood,Urine Small (Negative); Color,Urine Yellow; Glucose,Urine (UA) 2+ (Negative); Ketones,Urine Trace (Negative); Leukocyte Esterase,Urine Negative (Negative); Mucus,Urine Rare /hpf; Nitrite,Urine Negative (Negative); PH, Urine 5.5 (5.0-8.0); Protein,Urine Negative (Negative); RBC,Urine 1 /hpf (0-5); Specific Gravity,Urine 1.038 (1.001-1.035); Squamous Epithelial Cell,Urine <1 /hpf (0-4); Urobilinogen,Urine <2.0 mg/dL (<2.0)
[2019-04-10] MEDS: HEPARIN SOD,PORK IN 0.45% NACL 25,000 UNIT in 0.45% NACL 1 250ML.BAG IV SCH (21:34)
--- NOTE | 2019-04-10 22:48 | US ---
EXAMINATION TYPE: US carotid duplex BILAT DATE OF EXAM: 04/10/2019 COMPARISON: NONE CLINICAL HISTORY: Pre-Op Cardiac Surgery. Pre-Op Cardiac Surgery. EXAM MEASUREMENTS: RIGHT: Peak Systolic Velocity (PSV) cm/sec ----- Right CCA: 63.3 ----- Right ICA: 117.3 ----- Right ECA: 164.7 ICA/CCA ratio: 1.9 RIGHT: End Diastole cm/sec ----- Right CCA: 9.2 ----- Right ICA: 23.6 ----- Right ECA: 0.0 LEFT: Peak Systolic Velocity (PSV) cm/sec ----- Left CCA: 80.9 ----- Left ICA: 107.8 ----- Left ECA: 260.6 ICA/CCA ratio: 1.3 LEFT: End Diastole cm/sec ----- Left CCA: 16.0 ----- Left ICA: 32.7 ----- Left ECA: 0.0 VERTEBRALS (direction of flow): Right Vertebral: Antegrade Left Vertebral: Antegrade Rhythm: Normal Hyperechoic shadowing plaque seen bilateral carotid bifurcations. Intimal thickening seen bilaterally. Elevated velocities obtained in bilateral ECAs. IMRESSION: 1) NEGATIVE FOR FLOW-LIMITING ICA STENOSIS. 2) BILATERAL ANTEGRADE VERTEBRAL ARTERY FLOW. 3) INCIDENTAL FINDING: Isoechoic solid nodule seen left thyroid lobe with internal vascularity measu ring 1.6 x 1.6 x 1.2 cm.
[2019-04-11] MEDS: HYDROcodone/APAP 5-325MG 1 EACH TAB PO PRN ×2 (00:22→19:50)
[2019-04-11] MEDS: SODIUM CHLORIDE 0.9% 1,000 ML IV SCH ×2 (00:23→16:54)
[2019-04-11 03:37] LABS: Basophils % (A) 0 %; Eosinophils # (A) 0.1 k/uL (0-0.7); Eosinophils % (A) 1 %; HCT 39.4 % (34.0-46.0); HGB 12.5 gm/dL (11.4-16.0); Lymphocytes # (A) 0.7 k/uL (1.0-4.8); Lymphocytes % (A) 7 %; MCH 29.1 pg (25.0-35.0); MCHC 31.8 g/dL (31.0-37.0); MCV 91.5 fL (80.0-100.0); Mean Platelet Volume 8.5; Monocytes # (A) 0.4 k/uL (0-1.0); Monocytes % (A) 4 %; Neutrophils # (A) 8.8 k/uL (1.3-7.7); Neutrophils % (A) 88 %; Platelet Count 266 k/uL (150-450); RBC 4.31 m/uL (3.80-5.40); RDW 15.2 % (11.5-15.5); WBC 10.1 k/uL (3.8-10.6)
[2019-04-11 03:51] LABS: INR 1.1 (<1.2); Partial Thromboplastin Time 47.8 sec (22.0-30.0); Prothrombin Time 11.1 sec (9.0-12.0)
[2019-04-11 04:06] LABS: ALT 26 U/L (9-52); AST 24 U/L (14-36); African American GFR (CKD) >90 (>60 ml/min/1.73 sqM); Albumin 3.5 g/dL (3.5-5.0); Alkaline Phosphatase 41 U/L (38-126); Anion Gap 7 mmol/L; Blood Urea Nitrogen 37 mg/dL (7-17); Calcium 9.2 mg/dL (8.4-10.2); Carbon Dioxide 24 mmol/L (22-30); Chloride 105 mmol/L (98-107); Cholesterol 164 mg/dL (<200); Glucose 251 mg/dL (74-99); HDL Cholesterol 60 mg/dL (40-60); LDL Cholesterol,Calculated 90 mg/dL (0-99); Magnesium 2.4 mg/dL (1.6-2.3); Potassium 4.7 mmol/L (3.5-5.1); Sodium 136 mmol/L (137-145); Total Bilirubin 0.6 mg/dL (0.2-1.3); Total Protein 6.3 g/dL (6.3-8.2); Triglycerides 72 mg/dL (<150)
[2019-04-11] MEDS: PANTOPRAZOLE 40 MG TABLET PO SCH (06:19)
[2019-04-11 06:26] LABS: Glucose,Whole Blood 236 mg/dL (75-99)
[2019-04-11] MEDS: INSULIN ASPART (NovoLOG) 100 UNIT/ML VIAL SQ SCH ×5 (06:27→21:11)
[2019-04-11] MEDS: HYDROmorphone 0.5 MG/0.5 ML SYRINGE IVP PRN ×3 (08:10→23:44)
[2019-04-11] MEDS: FOLIC ACID 1 MG TAB PO SCH (08:11)
[2019-04-11] MEDS: METOPROLOL TARTRATE 50 MG TAB PO SCH ×2 (08:11→19:49)
[2019-04-11] MEDS: ASPIRIN 81 MG PO SCH (08:11)
[2019-04-11] MEDS: methylPREDNISolone SOD SUCCI 125 MG/2 ML VIAL IV SCH ×2 (08:11→19:52)
[2019-04-11] MEDS ORDERED: NITROGLYCERIN SL TABS 0.4 MG TAB SUBLINGUAL PRN ×2 (08:25→16:03)
[2019-04-11] MEDS: NITROGLYCERIN OINT 1 INCH/GM PACKET TOPICAL SCH ×4 (08:42→23:52)
[2019-04-11] MEDS: MUPIROCIN 2% OINT 22 GM TUBE NASAL SCH ×2 (08:45→19:57)
[2019-04-11] MEDS: DILTIAZEM 125 MG in SODIUM CHLORIDE 0.9% 100 ML IV SCH ×2 (09:05→23:08)
[2019-04-11] MEDS: SERTRALINE 25 MG TAB PO SCH (09:06)
--- NOTE | 2019-04-11 09:56 | PN ---
PROGRESS NOTE This patient underwent cardiac catheterization yesterday. Patient was found to have a significant triple-vessel disease including the left main coronary artery. Surgical consultation was obtained. Dr. Weiner did see the patient and we discussed that this patient has been most of the time confined to the wheelchair and not being ambulatory. Patient's recovery would be poor and the patient is considered a high risk for surgical intervention and they are very hesitant to do the surgery. The patient had some sharp pain in the left inframammary area this morning and she went into the atrial fibrillation with moderately rapid ventricular response. Patient has been treated with Dilaudid, nitro paste, and we will start the Cardizem drip. I discussed with the patient that she is a high risk for any kind of surgical intervention and we can consider percutaneous stenting of the left main and LAD with an Impella backup. The risk and benefits of this were discussed with the patient. The 5% to 10% chance of complication were explained to the patient as well as the patient's son. They would like to proceed with it. The patient has been evaluated by Dr. Roberts and she will undergo percutaneous intervention today. The patient is currently getting IV heparin and she will start the Cardizem drip to control the rate. She is on Lopressor 50 mg b.i.d. MMODL / IJN: [id number] /
--- NOTE | 2019-04-11 11:21 | P.PN ---
Subjective Progress Note Date: 04/11/19 Principal diagnosis: Coronary artery disease with left main disease, non-ST elevated myocardial infarction this admission. Past medical history significant for hypertension, hyperlipidemia, polio, diabetes mellitus type 2 with an admission hemoglobin A1c of 8.1%, history of CVA in 2011 with no residual effects, peripheral neuropathy with progressive weakness and numbness to her bilateral lower extremities. This is a 78-year-old female patient who is followed by Dr. Ihsan Klein on an outpatient basis. The patient recently moved to the area from [facility] and has been living at an assisted living [facility]. She reports that she has been wheelchair bound for around 8 months due to lower extremity weakness. She denies any complaints of pain to her bilateral lower extremities but does report numbness and tingling and is complaining of episodes of shortness of breath. Due to her weakness to her lower extremities which as progressively gotten worse over the last 2 weeks she presented to the emergency department here at [facility]. She denies any pain, recent fever, chills, injury or trauma, lightheadedness or palpitations. The patient also reports that she has been some upper extremity weakness as well over the p ast 2 weeks. Due to her weakness in her lower extremities and MRI was completed which showed lumbar subluxation at L4 and disc bulging at L3, L4, L5 and L5 to S1. It also showed spinal stenosis. Subsequently on 04/09/2019 the patient underwent a lumbar epidural steroid injection under fluoroscopic guidance performed by anesthesia pain management. Postoperatively the patient starting having complaints of a headache which radiated to her jaw, chest and bilateral upper extremities. Due to the complaints of chest pain a consult was placed to cardiology. A 2-D echocardiogram was completed which showed her to have an overall left ventricular systolic function to be low normal with an ejection fraction between 50 and 55%. Today for further evaluation she underwent a cardiac catheterization which demonstrated her to have an 80% stenosis to her left main coronary artery, a 90% stenosis to her posterior left ventricular branch, and 80% stenosis to her obtuse marginal branch, a 90% stenosis to her circumflex coronary artery and a 90% stenosis to her ostial left anterior descending coronary artery. This morning the patient is laying in bed in the intensive care unit. She is complaining of some chest pain/chest pressure which is radiating down her bilateral upper extremities and is also complaining of pain to her forehead and jaw. Bedside telemetry showing atrial fibrillation with RVR heart rate 114. Heparin drip remains infusing per protocol. Lab results this morning demonstr ate a WBC count of 10.1, Hgb 12.5, platelets 266, sodium 136, BUN 37, creatinine 0.53 and magnesium 2.4. Her carotid duplex study showed negative for flow- limiting bilateral ICA stenosis, and an incidental finding of an isolated isoechoic solid nodule seen in the left thyroid lobe with internal vascularity measuring 1.6 x 1.6 x 1.2 cm. Subsequently due to the patient's debilitated state and having been wheelchair bound for the last 8 months a long discussion was had with the patient by Dr. Weiner regarding myocardial revascularization surgery versus high risk PCI. The patient is scheduled today for a high risk PCI to be performed by Dr. Roberts. Objective - Vital Signs Vital signs: Vital Signs Temp 98.1 F 04/11/19 08:00 Pulse 84 04/11/19 10:00 Resp 14 04/11/19 10:00 BP 108/61 04/11/19 10:00 Pulse Ox 97 04/11/19 10:00 Intake & Output 04/10/19 04/11/19 04/11/19 18:59 06:59 18:59 Intake Total 950.411 926.184 450 Output Total 300 785 Balance 650.411 141.184 450 Weight 67.3 kg Intake: IV 100 225 Sodium Chloride 0.9% 1, 225 000 ml @ 75 mls/hr IV . [id number] MISHA Rx#:[id number] Intake, IV Titration 550.411 826.184 75 Amount Heparin Sod,Pork in 0.45% 100.411 1.184 NaCl 25,000 unit In 0.45 % NaCl 1 250ml.bag @ 12 UNITS/KG/HR 7.896 mls/hr IV .Q24H MISHA Rx#: [id number] Sodium Chloride 0.9% 1, 450 825 75 000 ml @ 75 mls/hr IV . [id number] MISHA Rx#:[id number] Oral 300 100 150 Output: Urine 300 785 Other: Voiding Method Bedpan Bedpan Bedpan # Voids 0 - Constitutional General appearance: Present: average body habitus, cooperative, no acute distress - Respiratory Details: Lungs sounds essentially clear to her bilateral upper lobes, few scattered crackles to bilateral bases. No wheezes or rhonchi. Respirations are symmetrical and nonlabored. - Cardiovascular Details: Irregular rhythm and tachycardic rate consistent with atrial fibrillation. S1 and S2 present, negative for S3, gallop or murmur. - Gastrointestinal Gastrointestinal Comment(s): Abdomen is soft, nontender and nondistended. Active bowel sounds present in all 4 abdominal quadrants. No guarding or rigidity. No organomegaly appreciated. - Genitourinary Genitourinary Comment(s): Voiding clear yellow urine. - Integumentary Integumentary Comment(s): Skin is warm and dry. No clubbing or cyanosis is present. No rash or abnormal pigmentation is present. - Neurologic Neurologic Comment(s): No focal deficits. Neurologic: Present: CNII-XII intact - Musculoskeletal Musculoskeletal: Present: generalized weakness - Psychiatric Psychiatric: Present: A&O x's 3, appropriate affect, intact judgment & insight - Allied health notes Allied health notes reviewed: nursing - Labs CBC & Chem 7: 04/11/19 03:24 04/11/19 03:24 Labs: Abnormal Lab Results - Last 24 Hours (Table) 04/10/19 04/10/19 04/10/19 Range/Units 11:34 14:17 16:56 Neutrophils # (1.3-7.7) k/uL Lymphocytes # (1.0-4.8) k/uL APTT (22.0-30.0) sec Sodium (137-145) mmol/L BUN (7-17) mg/dL Glucose (74-99) mg/dL POC Glucose (mg/dL) 201 H 231 H 238 H (75-99) mg/dL Magnesium (1.6-2.3) mg/dL Ur Specific [place] (1.001-1.035) Urine Glucose (UA) (Negative) Urine Ketones (Negative) Urine Blood (Negative) Urine Mucus (None) /hpf 04/10/19 04/10/19 04/11/19 Range/Units 20:59 21:15 03:24 Neutrophils # (1.3-7.7) k/uL Lymphocytes # (1.0-4.8) k/uL APTT 47.8 H (22.0-30.0) sec Sodium (137-145) mmol/L BUN (7-17) mg/dL Glucose (74-99) mg/dL POC Glucose (mg/dL) 214 H (75-99) mg/dL Magnesium (1.6-2.3) mg/dL Ur Specific [place] 1.038 H (1.001-1.035) Urine Glucose (UA) 2+ H (Negative) Urine Ketones Trace H (Negative) Urine Blood Small H (Negative) Urine Mucus Rare H (None) /hpf 04/11/19 04/11/19 04/11/19 Range/Units 03:24 03:24 06:23 Neutrophils # 8.8 H (1.3-7.7) k/uL Lymphocytes # 0.7 L (1.0-4.8) k/uL APTT (22.0-30.0) sec Sodium 136 L (137-145) mmol/L BUN 37 H (7-17) mg/dL Glucose 251 H (74-99) mg/dL POC Glucose (mg/dL) 236 H (75-99) mg/dL Magnesium 2.4 H (1.6-2.3) mg/dL Ur Specific [place] (1.001-1.035) Urine Glucose (UA) (Negative) Urine Ketones (Negative) Urine Blood (Negative) Urine Mucus (None) /hpf Microbiology - Last 24 Hours (Table) 04/10/19 19:03 Nasal Screen MRSA/MSSA - Preliminary Nasopharyngeal Swab - Imaging and Cardiology Ultrasound of her bilateral carotids report reviewed. Assessment and Plan Assessment: 1. Coronary artery disease with left main disease 2. Non-ST segment elevation myocardial infarction this admission 3. Diffuse diabetic peripheral neuropathy 4. Diabetes mellitus type 2 5. Gait dysfunction and weakness 6. History of hypertension 7. History of hyperlipidemia 8. History of CVA 9. History of polio Plan: 1. Dr. Weiner and Dr. Blum discussed the benefits of CABG vs high risk PCI. Will proceed with high risk PCI today per Dr. Roberts. 2. Optimize medical management, continue statin, ASA, and beta edgard. 3. Heparin drip management per cardiology. 4. Medical management of other comorbid conditions per primary care management. 5. Encourage use of IS Q1hr while awake. 6. GI and DVT prophylaxis. 7. We will continue to follow the patient on a as needed basis. Time with Patient: Greater than 30
[2019-04-11 12:08] LABS: Glucose,Whole Blood 342 mg/dL (75-99)
[2019-04-11] MEDS ORDERED: INSULIN ASPART (NovoLOG) 100 UNIT/ML VIAL SQ ONE (12:24)
--- NOTE | 2019-04-11 13:17 | P.PN ---
Progress Note - Text Progress Note Date: 04/11/19 Patient is a very pleasant 78-year-old female who is seen and examined at bedside for follow-up evaluation in regards to her cervical and lumbar spines. She continues to state her pain has been well-controlled since undergoing an epidural injection with pain management. She has active range of motion bilateral upper extremities without difficulty. She does continue to have significant difficulty with mobility and ambulation with the bilateral lower extremities. She states initially she started to experience weakness in the left foot that slowly progressed up the left leg during the summer of 2017. She states over the past 2 months she has began to experience some increased weakness of the right lower extremity. She denies any specific injuries. She continues to have significant difficulty with mobilization and requires 2 patient assist to transfer to a bedside commode. She continues to be seen by medicine and cardiology. A heart catheterization was performed yesterday which showed significant stenosis at multiple arteries. She also underwent an echocardiogram. She is currently scheduled for heart catheterization with stent placement today. We had previously ordered an MRI of the thoracic spine which has not yet been performed. It was discussed with the patient and nursing that she may proceed having this thoracic MRI is cleared from a cardiology standpoint following cardiac stent placement. She is currently in the ICU. Physical exam: Patient is awake, alert, and oriented 3 Vital signs stable Good chest excursion with deep inspiration and expiration Patient has significant difficulties lifting legs off the bed independently Patient is unable to perform active dorsiflexion and flexion of the toes of the left lower extremity Positive sustained range of motion with the right lower extremity but generally weaker Active full range of motion bilateral upper extremities without difficulty No signs or symptoms of DVT; no calf pain No pain with internal and external rotation of the hips bilaterally Neurovascularly intact Assessment: L4-5 grade 1-2 spondylolisthesis L4-5 central and bilateral neuroforaminal stenosis Bilateral lower extremity weakness greater on the left than the right Inability ambulate due to lower extremity weakness Diabetes mellitus History of polio Depression Elevated troponin levels Plan: 1. Patient has been discussed in detail with Dr. Lan Gong. Patient has been seen pain management and has undergone an injection at her lumbar spine. Since that time her pain is much better controlled. She does continue to have significant weakness in bilateral lower extremities. She does have evidence of change at her lumbar spine most significant at L4-5 with a grade 1-2 spondylolisthesis and central and bilateral neural foraminal stenosis. Although she has significant changes at the L4-5 level, all of her lower extremity weakness symptoms do not correlate well with this single level specifically. At this time we'll continue to plan to obtain an MRI of the thoracic spine to rule out possible cord compression or another cause for her bilateral lower extremity weakness is cleared from a cardiac standpoint as patient is currently scheduled for heart catheterization with stent placement today. If she is able to obtain a thoracic MRI, we will review this imaging and follow-up with the patient to discuss treatment options. At this time we are not currently planning for acute surgical intervention in regards to her cervical, thoracic, or lumbar spines. We are currently deferring treatment to cardiology after significant findings during her previous heart catheterization. 2. Patient will continue to be seen and examined by medicine for her other medical diagnoses 3. Patient will continue be seen examined by cardiology and is scheduled for cardiac catheterization with stent placement today.
[2019-04-11] MEDS ORDERED: IV FLUID CONTINUATION 1,000 ML IV ONE (13:35)
[2019-04-11] MEDS ORDERED: LIDOCAINE 1% INJ 10MG/ML (20 ML MDV) ONE ×2 (13:39→13:47)
[2019-04-11] MEDS ORDERED: LIDOCAINE 1% INJ 10MG/ML (20 ML MDV) SQ ONE (13:47)
[2019-04-11] MEDS: MIDAZOLAM (PF) 2 MG/2 ML VIAL IV ONE ×2 (13:48→14:43)
[2019-04-11] MEDS ORDERED: HEPARIN SODIUM 1,000 UN/ML (10ML VL) ONE (13:59)
[2019-04-11] MEDS: HEPARIN SODIUM 1,000 UN/ML (10ML VL) IV ONE ×2 (14:01→14:17)
[2019-04-11] MEDS ORDERED: niCARdipine 25 MG/10 ML VIAL ONE (14:05)
[2019-04-11 14:16] LABS: Hepatitis A Antibody IgM Non-Reactive (Non-Reactive); Hepatitis B Core IgM Non-Reactive (Non-Reactive); Hepatitis B Surface Antigen Non-Reactive (Non-Reactive); Hepatitis C IgG Antibody Non-Reactive (Non-Reactive)
--- NOTE | 2019-04-11 14:58 | PN ---
PROGRESS NOTE DATE OF SERVICE: 04/11/2019. This is a 78 -year-old woman who was admitted with diffuse progressive weakness and peripheral neuropathy, also had multiple cardiac issues, also the patient had chest pain. Cardiac cath showed multivessel disease. Cardiology planning initially regard to Cardiac Surgery Consultation, but however, Cardiology planning possible intervention which could be high-risk procedure because of multiple complex medical issues involved. Multiple consultants are following the patient closely. The neuro evaluation including MRI did not show any acute compressive disorder of the spinal cord at this time. The patient has significant weakness which is slightly improving at this time. PT, OT evaluated the patient, eventually ECF rehab is being considered at this time. The patient is being closely monitored in ICU. The patient developed left-sided sharp chest pains since last night, which was managed symptomatically. PAST MEDICAL HISTORY: Reviewed. REVIEW OF SYSTEMS: CARDIOVASCULAR SYSTEM: As mentioned earlier. GI: No nausea. : No dysuria. NERVOUS SYSTEMS: No focal deficits. CURRENT MEDICATIONS: Reviewed include continuing medication 1. Tylenol 500 mg q.6 p.r.n. 2. [place] 5 mg q6. 3. Xanax 0.5 q.h.s. 4. Aspirin 81 mg. 5. Lipitor 80 mg q.h.s. 6. BuSpar 15 mg p.o. b.i.d. p.r.n. 7. Cardizem drip. 8. Folic acid 1 mg p.o. daily. 9. Heparin. 10.Dilaudid. 11.NovoLog. 12.Solu-Medrol 60 IV b.i.d. 13.Lopressor 50 mg p.o. b.i.d. 14.Remeron. 15.Multivitamins. 16.Bactroban. 17.Nitro-Bid. 18.Protonix. 19.Zoloft. 20.Vitamin B1. PHYSICAL EXAM: Patient is alert, oriented x3. Pulse is 62. Blood pressure 133/60, respiration 13, temperature 98 degrees, pulse ox 97% on 2 L. HEENT: Conjunctivae normal. NECK: No jugular venous distension. CARDIOVASCULAR SYSTEM: S1, S2, muffled. RESPIRATORY: Breath sounds diminished at the bases, a few scattered rhonchi, no crackles. ABDOMEN: Soft, nontender. LEGS: No edema, no swelling. NERVOUS SYSTEM: Unchanged, significant weakness and numbness also present. LABS: CBC within normal, sodium is 136, potassium 4.7, glucose 251, UA noted. ASSESSMENT: 1. Diffuse progressive weakness and peripheral neuropathy, possible diabetic peripheral neuropathy present on admission. 2. Chest pain, possible acute non ST elevation myocardial infarction, troponin 1.33, status post cardiac catheterization showing severe triple-vessel disease 70%-80% mid LAD disease. 3. Significant gait dysfunction and muscle weakness. 4. Diabetes mellitus type 2. 5. Hyponatremia. 6. History of appendectomy. 7. Status post lumbar epidural steroid injection for significant lumbar degenerative joint disease, spondylosis and lumbar spinal stenosis with peripheral neuropathy. 8. History of hysterectomy. 9. History of tonsillectomy. 10.History of ectopic . RECOMMENDATION: Recommend to continue current management and symptomatic treatment. Otherwise, closely follow with Cardiology for cardiac catheterization, the Impella device was considered at this time. Otherwise, I would recommend continue the rest of medications. Closely follow with Orthopedic Surgery. The patient might require an MRI of the back to complete the workup as recommended by Orthopedic Surgery later. Otherwise, PT, OT evaluation once the patient is stabilized. Possible ECF rehab. Guarded prognosis. Further recommendations to follow. MMODL / IJN: [id number] /
[2019-04-11] MEDS ORDERED: IOPAMIDOL-370 125ML BTL INJ ONE ×2 (15:22→15:42)
[2019-04-11] MEDS ORDERED: TICAGRELOR 90 MG TAB ONE (15:37)
[2019-04-11] MEDS ORDERED: TICAGRELOR 90 MG TAB PO ONE (15:42)
[2019-04-11] MEDS ORDERED: MAG HYDROX/AL HYDROX/SIMETH 30 ML CUP PO PRN (16:03)
[2019-04-11] MEDS ORDERED: RX INFO: IV CONTRAST WAS GIVEN 1 EACH MISC MISCELLANE PRN (16:03)
[2019-04-11] MEDS ORDERED: ATROPINE SULFATE 0.1 MG/ML 10ML SYRINGE IV PRN (16:03)
[2019-04-11] MEDS ORDERED: ZOLPIDEM 5 MG TAB PO PRN (16:03)
[2019-04-11] MEDS ORDERED: SODIUM CHLORIDE 0.9% 1,000 ML IV SCH (16:15)
[2019-04-11 17:20] LABS: Glucose,Whole Blood 188 mg/dL (75-99)
[2019-04-11] MEDS: THIAMINE 100 MG TAB PO SCH (18:20)
[2019-04-11] MEDS: MIRTAZAPINE 15 MG TAB PO SCH (19:49)
[2019-04-11] MEDS: ATORVASTATIN 80 MG TAB PO SCH (19:50)
[2019-04-11] MEDS: TICAGRELOR 90 MG TAB PO SCH (19:50)
[2019-04-11 21:15] LABS: Glucose,Whole Blood 157 mg/dL (75-99)
--- NOTE | 2019-04-11 22:31 | PTCA ---
PERCUTANEOUSTRANS CORORONARY ANGIOGRAPHY DATE OF SERVICE: 04/11/2019 PERFORMING PHYSICIAN: Mario Roberts MD, pipefitter welder. PROCEDURES PERFORMED: 1. Successful placement of Impella 2.5 through the left groin. 2. Successful stenting of the first obtuse marginal branch of left circumflex using 2.0 x 12 mm [place] drug-eluting stent which was deployed under high pressure with excellent angiographic results and reduction of stenosis from 90% to 0%. 3. Successful stenting of unprotected left main as well as proximal LAD using 3.5 x 15 mm Xience drug-eluting stent with excellent angiographic results and reduction of stenosis from 80% to 0%. INDICATION: This is a 78-year-old female patient who presented to the hospital with chest discomfort and ruled in for acute [id number] myocardial infarction. She underwent a heart catheterization by Dr. Blum and was found to have critical disease involving OM1 of the left circumflex as well as left main coronary artery as well as ostial LAD. She was seen by a cardiothoracic surgeon and she was deemed to be high risk for the surgery, given her overall functional capacity. Because of that, PCI was advised. APPROACH: Right common femoral artery and left common femoral artery. COMPLICATIONS: None. LEVEL OF SEDATION: Moderate, with sedation length of 125 minutes. PROCEDURE DESCRIPTION: After obtaining informed consent, the patient was brought to the cardiac filling station laborer. The left common femoral artery was cannulated using micropuncture technique. The micropuncture wire passed easily. Then I placed a 6-[place] sheath 11 cm in the left common femoral artery. After that I the groin using 2 Perclose. The 2 Perclose were placed at 10 o'clock and 2 o'clock. After that I upgraded my sheath to a 12- [place] sheath using 8 and 10 dilators. Subsequently the right common femoral artery was cannulated using micropuncture technique. The micropuncture wire passed easily. Then I placed a 6-[place] sheath 11 cm in the right common femoral artery. After that I did cross the left ventricle using a 6-[place]ian pigtail catheter. After that I did place an 0.018 Impella wire in the left ventricle through the pigtail catheter. Subsequently the Impella was advanced under fluoroscopic guidance to the left ventricle and it was turned on. After that I did engage the left main coronary artery using JL4 with a short tip. I did wire the left circumflex coronary artery and the wire was positioned in OM1 of the left circumflex. Then I did wire the LAD with difficulties and the wire was positioned in the distal LAD. After that I did balloon angioplasty of the left circumflex using 2.5 x 12 mm balloon before I deployed 2.0 x 12 mm [place] drug-eluting stent where the stent was positioned under fluoroscopic guidance and deployed under 20 atmospheres for 20 seconds. The following angiogram showed good angiographic results and the procedure was completed without any complication. For the lesion in the left main and left circumflex, I did direct stenting of the lesion using 3.5 x 15 mm Xience drug-eluting stent where the stent was positioned under fluoroscopic guidance and then the stent was deployed under 16 atmospheres for 20 seconds after the circ wire was pulled out. The following angiogram showed excellent angiographic results and the procedure was completed without any complication. Please note that within the case using heparin for anticoagulation and the patient in the beginning was using a total of 8000 units of heparin. POST-PROCEDURE MANAGEMENT: 1. Dual anti-platelet therapy. 2. Risk factor modifications. 3. Follow up with the patient. MMODL / IJN: [id number] /
[2019-04-11] MEDS: HEPARIN SOD,PORK IN 0.45% NACL 25,000 UNIT in 0.45% NACL 1 250ML.BAG IV SCH (23:09)
[2019-04-12 05:54] LABS: African American GFR (CKD) >90 (>60 ml/min/1.73 sqM)
[2019-04-12] MEDS: PANTOPRAZOLE 40 MG TABLET PO SCH (06:14)
[2019-04-12] MEDS: NITROGLYCERIN OINT 1 INCH/GM PACKET TOPICAL SCH ×3 (06:14→17:21)
[2019-04-12] MEDS: SODIUM CHLORIDE 0.9% 1,000 ML IV SCH ×2 (06:14→21:05)
[2019-04-12 06:20] LABS: Glucose,Whole Blood 225 mg/dL (75-99)
[2019-04-12] MEDS: INSULIN ASPART (NovoLOG) 100 UNIT/ML VIAL SQ SCH ×4 (06:21→21:04)
[2019-04-12 07:05] LABS: Basophils # (A) 0.1 k/uL (0-0.2); Basophils % (A) 0 %; Eosinophils % (A) 0 %; HCT 32.6 % (34.0-46.0); HGB 10.5 gm/dL (11.4-16.0); Lymphocytes # (A) 0.5 k/uL (1.0-4.8); Lymphocytes % (A) 4 %; MCH 29.2 pg (25.0-35.0); MCHC 32.1 g/dL (31.0-37.0); MCV 91.1 fL (80.0-100.0); Mean Platelet Volume 8.4; Monocytes # (A) 0.7 k/uL (0-1.0); Monocytes % (A) 5 %; Neutrophils # (A) 12.7 k/uL (1.3-7.7); Neutrophils % (A) 89 %; Platelet Count 253 k/uL (150-450); RBC 3.58 m/uL (3.80-5.40); RDW 14.3 % (11.5-15.5); WBC 14.2 k/uL (3.8-10.6)
[2019-04-12 07:14] LABS: Anion Gap 6 mmol/L; Blood Urea Nitrogen 39 mg/dL (7-17); Calcium 8.9 mg/dL (8.4-10.2); Carbon Dioxide 27 mmol/L (22-30); Chloride 106 mmol/L (98-107); Glucose 213 mg/dL (74-99); Potassium 4.6 mmol/L (3.5-5.1); Sodium 139 mmol/L (137-145)
[2019-04-12] MEDS: MULTIVITAMINS, THERA 1 EACH TAB PO SCH (08:15)
[2019-04-12] MEDS: TICAGRELOR 90 MG TAB PO SCH ×2 (08:15→21:03)
[2019-04-12] MEDS: methylPREDNISolone SOD SUCCI 125 MG/2 ML VIAL IV SCH ×2 (08:15→21:04)
[2019-04-12] MEDS: FOLIC ACID 1 MG TAB PO SCH (08:15)
[2019-04-12] MEDS: METOPROLOL TARTRATE 50 MG TAB PO SCH ×2 (08:15→21:03)
[2019-04-12] MEDS: SERTRALINE 25 MG TAB PO SCH (08:16)
[2019-04-12] MEDS: ASPIRIN 81 MG PO SCH (08:16)
[2019-04-12] MEDS: MUPIROCIN 2% OINT 22 GM TUBE NASAL SCH ×2 (08:16→21:05)
[2019-04-12] MEDS: DILTIAZEM 125 MG in SODIUM CHLORIDE 0.9% 100 ML IV SCH ×2 (08:16→21:59)
[2019-04-12] MEDS ORDERED: ASPIRIN 81 MG PO SCH (09:00)
[2019-04-12 10:48] VITALS: BMI 24.5
[2019-04-12] MEDS: THIAMINE 100 MG TAB PO SCH (11:55)
--- NOTE | 2019-04-12 11:56 | PN ---
PROGRESS NOTE This patient underwent a stent to the left main, LAD and obtuse marginal branch. Overall, the procedure went very well. She is comfortable. The patient did develop some hematoma in the right groin. She is feeling better. Patient's hemoglobin is stable. Vital signs are stable. Blood pressure is 100/39 mmHg. Heart rate is 60 per minute. First and second heart sounds are normal. Lungs are clinically clear to auscultation and percussion. The patient has a moderate-sized hematoma in the right groin. PLAN: We will do the ultrasound of the right groin to rule out any evidence of pseudoaneurysm. Hemoglobin is 10.5. We will repeat the CBC tomorrow. Creatinine remains stable. We will increase the patient's activity. MMLISA / KWAKU: [id number] /
[2019-04-12 12:17] LABS: Glucose,Whole Blood 199 mg/dL (75-99)
--- NOTE | 2019-04-12 13:32 | PN ---
PROGRESS NOTE DATE OF SERVICE: 04/12/2019 This 78-year-old woman who was admitted with diffuse progressive weakness also had acute non ST segment elevation myocardial infarction. The patient had significant coronary artery disease. The patient opted for high-risk stenting compared to CABG. Dr. Roberts performed successful placement of the Impella 2.5 through the left groin and stenting of the left obtuse marginal branch of left circumflex and as well as stenting of the left main. The patient is being closely monitored at this time. The patient has some hematoma at the groin. No chest pain or palpitations. Multiple consultants are following the patient. Patient is being closely monitored in ICU at this time. PAST MEDICAL HISTORY: Reviewed. REVIEW OF SYSTEMS: CARDIOVASCULAR SYSTEM: As mentioned earlier. RESPIRATORY SYSTEM: As mentioned earlier. GI: No nausea. : No dysuria. NERVOUS SYSTEM: No numbness or weakness. CURRENT MEDICATIONS: Current medications are reviewed and include: 1. Tylenol 500 mg q.6 p.r.n. 2. Zarephath 5 mg q.6. P.r.n. 3. Maalox 30 mL q.4 p.r.n. 4. Xanax 0.25 q.6. 5. Aspirin 81 mg p.o. daily. 6. Lipitor 80 mg q.h.s. 7. Atropine. 8. BuSpar 15 mg p.o. b.i.d. 9. Cardizem drip. 10.Folic acid 1 mg p.o. daily. 11.Dilaudid 0.5 mg q.6. 12.NovoLog. 13.Solu-Medrol 60 IV 14.Lopressor 50 mg p.o. b.i.d. 15.Remeron 15 mg p.o. q.h.s. 16.Multivitamins one p.o. daily. 17.Bactroban. 18.Nitrostat 0.4 sublingual p.r.n. 19.Nitro-Bid 1 inch q.6. 20.Protonix. 21.Zoloft. 22.Vitamin B1, 100 mg daily. 23.Brilinta 90 mg p.o. b.i.d. 24.Ambien 5 mg q.h.s. p.r.n. PHYSICAL EXAMINATION: Patient is alert, oriented x3. Pulse 65, blood pressure 117/56, respiration 15, temperature normal, pulse ox 94% on 2 L. HEENT: Conjunctivae normal. NECK: No jugular venous distention. CARDIOVASCULAR: S1, S2 muffled. RESPIRATORY: Breath sounds diminished at the bases. A few scattered rhonchi, no crackles. ABDOMEN: Soft, nontender. LEGS: No edema, no swelling. NERVOUS SYSTEM: Diffuse weakness unchanged. LAB STUDIES: WBC 14.2, hemoglobin 10.2. Accu-Cheks noted. ASSESSMENT: 1. Chest pain possible acute non ST segment elevation myocardial infarction troponin 1.33, status post cardiac catheterization, stenting of the obtuse marginal and as well as LAD. 2. Triple-vessel coronary disease on the cardiac cath. 3. Diffuse progressive weakness and peripheral neuropathy, possible diabetic peripheral neuropathy, present on admission. 4. Significant gait dysfunction and motor component and muscle weakness of undetermined etiology. 5. Diabetes mellitus type 2. 6. Hyponatremia. 7. History of appendectomy. 8. Status post lumbar epidural injection for significant lumbar degenerative joint, spondylosis and lumbar spinal stenosis with peripheral neuropathy. 9. History of hysterectomy. 10.History of tonsillectomy. 11.History of ectopic . RECOMMENDATIONS AND DISCUSSION: Recommend to continue current medications, continue symptomatic treatment. Otherwise closely monitor. Continue with antiplatelet agents. Continue the rest of the medications: Closely follow with Cardiology in ICU. Otherwise symptomatic treatment, PT, OT evaluation, eventually possible ECF rehab. Prognosis guarded, but however the patient is stable currently. Further recommendations to follow. MMODL / IJN: [id number] / MTDD
--- NOTE | 2019-04-12 13:47 | US ---
EXAMINATION TYPE: US lower ext pseudo artery RT DATE OF EXAM: 04/12/2019 COMPARISON: NONE CLINICAL HISTORY: hematoma post heart cath. Right groin pain following recent heart cath EXAM PERFORMED: Grayscale and color Doppler duplex imaging performed of the groin, post cardiac eula ter to assess for pseudoaneurysm. SIDE PERFORMED: Right Color and Waveform Doppler performed to assess for the presence of pseudoaneurysm; Is there ultrasound evidence of a pseudoaneurysm: No Is there evidence of AV shunting: No Is there a fluid collection present: Yes, 2.9 x 2.4 x 6.3cm irregular elongated collection with inter nal echoes seen anterior and medial to artery and vein, no color flow seen, no neck connecting to art molly IMPRESSION: Small to moderate-sized subcutaneous hematoma in the right groin. No pseudoaneurysm is ev ident.
[2019-04-12] MEDS ORDERED: MAGNESIUM HYDROXIDE 2,400 MG/10 ML CUP PO PRN (14:01)
[2019-04-12] MEDS: HYDROmorphone 0.5 MG/0.5 ML SYRINGE IVP PRN (16:40)
[2019-04-12 16:55] LABS: Glucose,Whole Blood 250 mg/dL (75-99)
[2019-04-12 20:55] LABS: Glucose,Whole Blood 184 mg/dL (75-99)
[2019-04-12] MEDS: MIRTAZAPINE 15 MG TAB PO SCH (21:02)
[2019-04-12] MEDS: ATORVASTATIN 80 MG TAB PO SCH (21:04)
[2019-04-13] MEDS: NITROGLYCERIN OINT 1 INCH/GM PACKET TOPICAL SCH ×4 (00:34→18:55)
[2019-04-13 06:03] LABS: HCT 28.8 % (34.0-46.0); HGB 9.5 gm/dL (11.4-16.0); MCH 29.3 pg (25.0-35.0); MCHC 33.1 g/dL (31.0-37.0); MCV 88.7 fL (80.0-100.0); Platelet Count 217 k/uL (150-450); RBC 3.25 m/uL (3.80-5.40); RDW 15.3 % (11.5-15.5); WBC 11.5 k/uL (3.8-10.6)
[2019-04-13 06:50] LABS: Glucose,Whole Blood 204 mg/dL (75-99)
[2019-04-13] MEDS: INSULIN ASPART (NovoLOG) 100 UNIT/ML VIAL SQ SCH ×4 (06:54→20:54)
[2019-04-13 07:18] LABS: African American GFR (CKD) >90 (>60 ml/min/1.73 sqM); Anion Gap 6 mmol/L; Blood Urea Nitrogen 30 mg/dL (7-17); Calcium 8.7 mg/dL (8.4-10.2); Carbon Dioxide 26 mmol/L (22-30); Chloride 105 mmol/L (98-107); Glucose 175 mg/dL (74-99); Potassium 4.2 mmol/L (3.5-5.1); Sodium 137 mmol/L (137-145)
[2019-04-13] MEDS: METOPROLOL TARTRATE 50 MG TAB PO SCH ×2 (08:48→20:53)
[2019-04-13] MEDS: FOLIC ACID 1 MG TAB PO SCH (08:48)
[2019-04-13] MEDS: MULTIVITAMINS, THERA 1 EACH TAB PO SCH (08:48)
[2019-04-13] MEDS: TICAGRELOR 90 MG TAB PO SCH ×2 (08:48→20:53)
[2019-04-13] MEDS: SERTRALINE 25 MG TAB PO SCH (08:49)
[2019-04-13] MEDS: ASPIRIN 81 MG PO SCH (08:49)
[2019-04-13] MEDS: methylPREDNISolone SOD SUCCI 125 MG/2 ML VIAL IV SCH ×2 (08:49→20:53)
[2019-04-13] MEDS: PANTOPRAZOLE 40 MG TABLET PO SCH (08:54)
--- NOTE | 2019-04-13 10:23 | PN ---
PROGRESS NOTE This patient is status post a stent to the left main, LAD and obtuse marginal branch. The patient is doing fairly well. Denies any chest pain or shortness of breath. Her vital signs and monitor strips are controlled. Blood pressure is 129/69 mmHg. First and second heart sounds are normal. Lungs are clear to auscultation and percussion. The right groin is . The ultrasound showed only subcutaneous hematoma. There is no evidence of any pseudoaneurysm. We will have physical therapy to evaluate and put her in a wheelchair. The patient will be able to be discharged in next 24 to 48 hours if she remains stable. MMODL / IJN: [id number] /
[2019-04-13 11:55] LABS: Glucose,Whole Blood 129 mg/dL (75-99)
[2019-04-13] MEDS: HYDROmorphone 0.5 MG/0.5 ML SYRINGE IVP PRN ×2 (14:12→19:12)
--- NOTE | 2019-04-13 15:05 | PN ---
PROGRESS NOTE DATE OF SERVICE: 04/13/2019 This 78-year-old woman who was admitted with multiple medical issues had cardiac catheterization and stenting, also. The patient is being closely monitored. PT/OT is following the patient closely. No chest pain. No palpitations. No fever. No shortness of breath. On exam, alert and oriented x3. Pulse 80, blood pressure 129/57, respiration 17, temperature 98.2, pulse ox 96% on room air. HEENT: Conjunctivae normal. NECK: No jugular venous distention. CARDIOVASCULAR SYSTEM: S1, S2 muffled. RESPIRATORY SYSTEM: Breath sounds diminished at the bases. No rhonchi. No crackles. ABDOMEN: Soft, non-tender. LEGS: No edema. No swelling. NERVOUS SYSTEM: Unchanged. LABS: WBC 11.5, hemoglobin 9.5. ASSESSMENT: 1. Acute asw-TA-tmtgyda-elevation myocardial infarction. Troponin 1.32. Status post cardiac catheterization and stenting of the LAD. 2. Triple-vessel coronary artery disease on the cardiac catheterization. 3. Diffuse progressive weakness and peripheral neuropathy, possible diabetic peripheral neuropathy, present on admission. 4. Significant gait dysfunction and motor component with muscle weakness of undetermined etiology. 5. Diabetes mellitus, type 2. 6. Hyponatremia. 7. History of appendectomy. 8. Status post lumbar epidural injection for significant lumbar degenerative joint disease, spondylosis and lumbar spinal stenosis with peripheral neuropathy. 9. History of hysterectomy. 10.History of tonsillectomy. 11.History of ectopic . RECOMMENDATIONS AND DISCUSSION: I recommend to continue current medications, continue with the monitoring, symptomatic treatment. Otherwise at this time I recommend continuing with antiplatelet agents. Closely follow with Cardiology. Otherwise increase ambulation. Possible PT/OT evaluation. Further recommendations to follow. MMODL / IJN: [id number] / ANGY
[2019-04-13] MEDS: DILTIAZEM 125 MG in SODIUM CHLORIDE 0.9% 100 ML IV SCH ×2 (15:33→21:09)
[2019-04-13] MEDS: THIAMINE 100 MG TAB PO SCH (15:33)
[2019-04-13 17:00] LABS: Glucose,Whole Blood 286 mg/dL (75-99)
[2019-04-13] MEDS ORDERED: INSULIN DETEMIR (LEVEMIR) 100 UNIT/ML SYR SQ SCH (18:00)
[2019-04-13 20:48] LABS: Glucose,Whole Blood 173 mg/dL (75-99)
[2019-04-13] MEDS: SODIUM CHLORIDE 0.9% 1,000 ML IV SCH ×3 (20:51→21:12)
[2019-04-13] MEDS: ATORVASTATIN 80 MG TAB PO SCH (20:53)
[2019-04-13] MEDS: MIRTAZAPINE 15 MG TAB PO SCH (20:58)
[2019-04-14] MEDS: NITROGLYCERIN OINT 1 INCH/GM PACKET TOPICAL SCH ×4 (00:15→17:14)
[2019-04-14 06:45] LABS: Glucose,Whole Blood 122 mg/dL (75-99)
[2019-04-14] MEDS: INSULIN ASPART (NovoLOG) 100 UNIT/ML VIAL SQ SCH ×4 (06:45→21:27)
[2019-04-14 06:57] LABS: HCT 27.3 % (34.0-46.0); HGB 9.1 gm/dL (11.4-16.0); MCH 29.4 pg (25.0-35.0); MCHC 33.2 g/dL (31.0-37.0); MCV 88.4 fL (80.0-100.0); Platelet Count 203 k/uL (150-450); RBC 3.09 m/uL (3.80-5.40); RDW 15.1 % (11.5-15.5); WBC 11.3 k/uL (3.8-10.6)
[2019-04-14 07:01] LABS: African American GFR (CKD) >90 (>60 ml/min/1.73 sqM); Anion Gap 4 mmol/L; Blood Urea Nitrogen 31 mg/dL (7-17); Calcium 8.6 mg/dL (8.4-10.2); Carbon Dioxide 27 mmol/L (22-30); Chloride 105 mmol/L (98-107); Glucose 122 mg/dL (74-99); Potassium 4.1 mmol/L (3.5-5.1); Sodium 136 mmol/L (137-145)
[2019-04-14] MEDS: SERTRALINE 25 MG TAB PO SCH (08:03)
[2019-04-14] MEDS: PANTOPRAZOLE 40 MG TABLET PO SCH (08:03)
[2019-04-14] MEDS: METOPROLOL TARTRATE 50 MG TAB PO SCH ×2 (08:03→21:21)
[2019-04-14] MEDS: TICAGRELOR 90 MG TAB PO SCH ×2 (08:03→21:20)
[2019-04-14] MEDS: ASPIRIN 81 MG PO SCH (08:03)
[2019-04-14] MEDS: MULTIVITAMINS, THERA 1 EACH TAB PO SCH (08:03)
[2019-04-14] MEDS: FOLIC ACID 1 MG TAB PO SCH (08:04)
[2019-04-14] MEDS: methylPREDNISolone SOD SUCCI 125 MG/2 ML VIAL IV SCH (08:04)
[2019-04-14 11:39] LABS: Glucose,Whole Blood 155 mg/dL (75-99)
[2019-04-14] MEDS: amLODIPine 5 MG TAB PO SCH (12:06)
[2019-04-14] MEDS: THIAMINE 100 MG TAB PO SCH (12:08)
[2019-04-14] MEDS: SODIUM CHLORIDE 0.9% 1,000 ML IV SCH (13:48)
[2019-04-14] MEDS: methylPREDNISolone SOD SUCCI 40 MG/ML 1 ML VIAL IV SCH ×2 (13:48→21:36)
[2019-04-14 17:04] LABS: Glucose,Whole Blood 238 mg/dL (75-99)
--- NOTE | 2019-04-14 17:16 | PN ---
PROGRESS NOTE DATE OF SERVICE: 04/14/2019 This 78 -year-old woman who was admitted with acute non ST elevation myocardial infarction, also had elevated troponin up to 1.32. The patient had cardiac cath and stenting also. Patient being closely monitored. The patient is on IV steroids also. A duplex scan of the lower extremity showed a small to moderate-sized subcutaneous hematoma without any pseudoaneurysm. No chest pain. No palpitations. No fever. PHYSICAL EXAM: Alert and oriented times three. Pulse 81. Blood pressure 160/72. Respirations 20. Temp is 98.2, pulse ox 97% on room air. HEENT is conjunctivae normal. Oral mucosa moist. Neck is no jugular venous distention. No carotid bruit. No lymph node enlargement. Cardiovascular system: S1, S2 muffled. Respirations: Breath sounds diminished in the bases. No rhonchi. No crackles. ABDOMEN: Soft. Legs are nontender. Central nervous system: Unchanged. LABS: WBC 11.3, hemoglobin 9.1, sodium 136. ASSESSMENT: 1. Acute non ST elevation myocardial infarction with troponin 1.32, status post cardiac arrest and stenting of the left anterior descending coronary artery. 2. Triple-vessel coronary artery disease on the cardiac catheterization. 3. Diffuse progressive weakness, peripheral neuropathy, possible diabetic peripheral neuropathy present on admission. 4. Significant gait dysfunction and motor component with muscle weakness of undetermined etiology. 5. Small to moderate-sized subcutaneous hematoma of the right groin. 6. Diabetes mellitus type 2. 7. Hyponatremia. 8. History of appendectomy. 9. Status post lumbar epidural injection for significant lumbar degenerative joint disease, spondylosis and lumbar spinal stenosis with peripheral neuropathy. 10.History of hysterectomy. 11.History of tonsillectomy. 12.History of ectopic . RECOMMENDATIONS AND DISCUSSION: Recommend to continue current medications, monitoring and symptomatic treatment. Otherwise, at this time, continue the current medications. Taper the steroids. PT/OT evaluation. Guarded prognosis. Further recommendations to follow. MMODL / IJN: [id number] /
--- NOTE | 2019-04-14 18:07 | PN ---
PROGRESS NOTE Shaila is a 78-year-old lady who has been in the hospital for a long time and has had stenting of left main LAD and OM branch. This morning her predominant symptom is that she is feeling tired and weak in her feet. Denies any chest pain or difficulty in breathing. She is currently on aspirin, Lipitor, Brilinta and nitro paste. Her blood pressures were somewhat poorly controlled. I am adding Norvasc 5 mg daily. I reviewed her labs. Hemoglobin is 9.1, creatinine is 0.48, potassium is 4.1. EXAM: Comfortable at rest. Heart rate is 64 beats per minute. Blood pressure is 149/65, respiratory rate is 16. There is no jugular venous distention. Chest exam reveals diminished air entry at the bases. I do not hear any crackles or rhonchi. Heart exam reveals first and second heart sounds and a systolic murmur at the apex. Exam of extremities did not reveal any edema. ASSESSMENT: 1. Coronary artery disease status post multivessel angioplasty. 2. Uncontrolled hypertension. PLAN: I will add amlodipine, continue rest of her medications and transfer the patient to [facility] care. MMODL / IJN: [id number] /
[2019-04-14] MEDS: HYDROmorphone 0.5 MG/0.5 ML SYRINGE IVP PRN (18:21)
[2019-04-14 21:17] LABS: Glucose,Whole Blood 123 mg/dL (75-99)
[2019-04-14] MEDS: MIRTAZAPINE 15 MG TAB PO SCH (21:20)
[2019-04-14] MEDS: ATORVASTATIN 80 MG TAB PO SCH (21:20)
[2019-04-14] MEDS: HYDROcodone/APAP 5-325MG 1 EACH TAB PO PRN (21:21)
[2019-04-14] MEDS: INSULIN DETEMIR (LEVEMIR) 100 UNIT/ML SYR SQ SCH (21:23)
[2019-04-15] MEDS: NITROGLYCERIN OINT 1 INCH/GM PACKET TOPICAL SCH ×2 (00:46→06:06)
[2019-04-15] MEDS: HYDROmorphone 0.5 MG/0.5 ML SYRINGE IVP PRN ×2 (00:46→11:12)
[2019-04-15] MEDS: methylPREDNISolone SOD SUCCI 40 MG/ML 1 ML VIAL IV SCH ×3 (06:06→20:15)
[2019-04-15] MEDS: HYDROcodone/APAP 5-325MG 1 EACH TAB PO PRN ×2 (06:08→20:14)
[2019-04-15 07:08] LABS: Glucose,Whole Blood 213 mg/dL (75-99)
[2019-04-15] MEDS: INSULIN ASPART (NovoLOG) 100 UNIT/ML VIAL SQ SCH ×4 (07:12→20:22)
[2019-04-15] MEDS: FOLIC ACID 1 MG TAB PO SCH (09:14)
[2019-04-15] MEDS: PANTOPRAZOLE 40 MG TABLET PO SCH (09:14)
[2019-04-15] MEDS: ASPIRIN 81 MG PO SCH (09:14)
[2019-04-15] MEDS: METOPROLOL TARTRATE 50 MG TAB PO SCH ×2 (09:14→20:14)
[2019-04-15] MEDS: TICAGRELOR 90 MG TAB PO SCH ×2 (09:14→20:14)
[2019-04-15] MEDS: MULTIVITAMINS, THERA 1 EACH TAB PO SCH (09:14)
[2019-04-15] MEDS: amLODIPine 5 MG TAB PO SCH (11:12)
[2019-04-15] MEDS: SERTRALINE 25 MG TAB PO SCH (11:12)
[2019-04-15 11:39] LABS: Glucose,Whole Blood 248 mg/dL (75-99)
[2019-04-15] MEDS: THIAMINE 100 MG TAB PO SCH (12:39)
[2019-04-15 17:14] LABS: Glucose,Whole Blood 218 mg/dL (75-99)
--- NOTE | 2019-04-15 18:58 | PN ---
PROGRESS NOTE DATE OF SERVICE: 04/15/2019. This 78-year-old woman was admitted with acute non-ST elevation myocardial infarction, is being closely monitored at this time. The patient had cardiac catheterization and stenting also. The patient also had significant weakness. PT/OT evaluating the patient for ECF rehab. No chest pain. No palpitations. No fever. EXAM: Alert and oriented times three. Pulse 70. Blood pressure 166/69, respirations 16, temperature 97, temp is normal. Pulse ox 98% on room air. HEENT: Conjunctivae normal. NECK: No jugular venous distention. CARDIOVASCULAR: S1, S2 muffled. RESPIRATORY: Breath sounds diminished in the bases. No rhonchi. No crackles. ABDOMEN is soft, nontender. LEGS are no edema. No swelling. CENTRAL NERVOUS SYSTEM: Unchanged. LAB STUDIES: WBC 11.3, hemoglobin 9.1, sodium 136. Glucose noted. ASSESSMENT: 1. Acute non-ST segment elevation myocardial infarction with troponin 1.32, status post cardiac catheterization and stenting of the left anterior descending coronary artery. 2. Triple-vessel coronary artery disease on the cardiac catheterization. 3. Diffuse progressive weakness with peripheral neuropathy, possible diabetic peripheral neuropathy present on admission. 4. Significant gait dysfunction with motor component muscle weakness of undetermined etiology. 5. Oiadc-bc-rpowenlu sized subcutaneous hematoma of the right groin. 6. Diabetes mellitus type 2. 7. Hyponatremia. 8. History of appendectomy. 9. Status post lumbar epidural injection for significant lumbar degenerative joint disease, spondylosis and lumbar spine stenosis with peripheral neuropathy. 10.History of hysterectomy. 11.History of tonsillectomy. 12.History of ectopic . RECOMMENDATIONS AND DISCUSSION: Recommend to continue current medications, management and symptomatic treatment. Otherwise, continue with antiplatelet agents. Closely follow with Cardiology. PT/OT evaluation, possible ECF rehab. Also recommend the patient follow up closely with neurologist in the outpatient setting for further workup of the motor weakness including EMG and possibly muscle biopsy and other further evaluations. The overall prognosis guarded, which I discussed at length with the family and the son at the bedside. Further recommendations to follow. MMODL / IJN: [id number] /
--- NOTE | 2019-04-15 19:19 | PN ---
PROGRESS NOTE Shaila is a 78-year-old lady who is in the ICU with complex and multiple medical problems, underwent stenting of the left main and OM branch. Currently, her predominant symptom is that she is feeling tired and weak. Denies any chest pain or difficulty in breathing. Remains in sinus rhythm. Blood pressure is well controlled today. EXAM: Comfortable at rest. Heart rate is 70 beats per minute. Blood pressure is 120/50, respiratory rate is 14. There is no jugular venous distention. Chest exam reveals good air entry bilaterally. Heart exam reveals first and second heart sounds. No gallop. Exam of the extremities did not reveal any edema. Peripheral pulses are felt. ASSESSMENT: Acute coronary syndrome status post stenting of left main. The patient is doing well. Stable for transfer out of ICU. MMODL / IJN: [id number] /
[2019-04-15] MEDS: ATORVASTATIN 80 MG TAB PO SCH (20:14)
[2019-04-15] MEDS: MIRTAZAPINE 15 MG TAB PO SCH (20:14)
[2019-04-15 20:17] LABS: Glucose,Whole Blood 223 mg/dL (75-99)
[2019-04-15] MEDS: INSULIN DETEMIR (LEVEMIR) 100 UNIT/ML SYR SQ SCH (20:22)
[2019-04-16 06:07] LABS: Glucose,Whole Blood 149 mg/dL (75-99)
[2019-04-16] MEDS: HYDROcodone/APAP 5-325MG 1 EACH TAB PO PRN ×2 (06:18→23:12)
[2019-04-16] MEDS: PANTOPRAZOLE 40 MG TABLET PO SCH (06:19)
[2019-04-16] MEDS: INSULIN ASPART (NovoLOG) 100 UNIT/ML VIAL SQ SCH ×4 (06:19→21:31)
[2019-04-16] MEDS: methylPREDNISolone SOD SUCCI 40 MG/ML 1 ML VIAL IV SCH ×3 (06:19→21:19)
[2019-04-16 06:24] LABS: Basophils # (A) 0.1 k/uL (0-0.2); Basophils % (A) 0 %; Eosinophils % (A) 0 %; HCT 31.8 % (34.0-46.0); HGB 10.6 gm/dL (11.4-16.0); Lymphocytes # (A) 1.3 k/uL (1.0-4.8); Lymphocytes % (A) 9 %; MCH 29.5 pg (25.0-35.0); MCHC 33.4 g/dL (31.0-37.0); MCV 88.3 fL (80.0-100.0); Mean Platelet Volume 9.1; Monocytes # (A) 0.8 k/uL (0-1.0); Monocytes % (A) 6 %; Neutrophils % (A) 83 %; Platelet Count 277 k/uL (150-450); RDW 15.9 % (11.5-15.5); WBC 14.4 k/uL (3.8-10.6)
[2019-04-16 06:32] LABS: African American GFR (CKD) >90 (>60 ml/min/1.73 sqM); Anion Gap 5 mmol/L; Blood Urea Nitrogen 27 mg/dL (7-17); Calcium 8.6 mg/dL (8.4-10.2); Carbon Dioxide 29 mmol/L (22-30); Chloride 103 mmol/L (98-107); Glucose 146 mg/dL (74-99); Potassium 3.8 mmol/L (3.5-5.1); Sodium 137 mmol/L (137-145)
[2019-04-16] MEDS: FOLIC ACID 1 MG TAB PO SCH (10:10)
[2019-04-16] MEDS: TICAGRELOR 90 MG TAB PO SCH ×2 (10:10→21:20)
[2019-04-16] MEDS: SERTRALINE 25 MG TAB PO SCH (10:11)
[2019-04-16] MEDS: ASPIRIN 81 MG PO SCH (10:11)
[2019-04-16] MEDS: amLODIPine 5 MG TAB PO SCH (10:11)
[2019-04-16] MEDS: THIAMINE 100 MG TAB PO SCH (10:11)
[2019-04-16] MEDS: METOPROLOL TARTRATE 50 MG TAB PO SCH ×2 (10:11→21:19)
[2019-04-16] MEDS: MULTIVITAMINS, THERA 1 EACH TAB PO SCH (10:11)
[2019-04-16 12:39] LABS: Glucose,Whole Blood 249 mg/dL (75-99)
--- NOTE | 2019-04-16 13:42 | P.DS ---
Providers Date of admission: 04/08/19 14:38 Expected date of discharge: 04/16/19 Attending physician: Lubna Cazares Consults: 04/06/19 11:59 Consult Physician Urgent Consulting Provider: Sendy Gudino Consult Reason/Comments: Extremity weakness progressive Do you want consulting provider notified?: Yes 04/06/19 15:51 Consult Physician Routine Consulting Provider: Ángela Gong Consult Reason/Comments: cervical djd Do you want consulting provider notified?: Yes 04/07/19 07:36 Consult Physician Routine Consulting Provider: Ector Olivares Consult Reason/Comments: Depression Do you want consulting provider notified?: Already Contacted 04/08/19 13:53 Consult to Anesthesia Routine Consulting Provider: Anesthesia,Services Consult Reason/Comments: Possible L4 5 epidural steroid injection 04/09/19 15:47 Consult Physician Urgent Consulting Provider: Keith Quintana Consult Reason/Comments: Chest pain, heaviness, SOB Do you want consulting provider notified?: Yes 04/10/19 15:27 Consult Physician Urgent Consulting Provider: Luther Weiner Consult Reason/Comments: Evaluate for CABG Do you want consulting provider notified?: Already Contacted 04/11/19 16:03 Consult Physician Routine Consulting Provider: Keith Qiuntana Consult Reason/Comments: Post Interventional patient Do you want consulting provider notified?: Already Contacted Primary care physician: Ihsan Klein Hospital Course: Final Diagnosis Acute non-ST segment elevation myocardial infarction with troponin 1.32, status post cardiac catheterization and stenting of the left anterior descending coronary artery Triple-vessel coronary artery disease Diffuse progressive weakness with peripheral neuropathy, possible diabetic peripheral neuropathy, present on admission Significant gait dysfunction with motor component muscle weakness of undetermined etiology Bsbvf-lb-ootlijwx sized subcutaneous hematoma of the right groin Diabetes mellitus type 2 Hyponatremia History of appendectomy history of hysterectomy History of tonsillectomy History of ectopic Significant lumbar degenerative joint disease with spondylosis and lumbar spine stenosis with peripheral neuropathy, status post lumbar epidural injection Discharge disposition Patient is being discharged in a stable condition with guarded prognosis to [facility] for continued PT/OT therapy. Patient will follow up with neurology in the outpatient setting for further workup of the motor weakness including EMG and possible muscle biopsy. Total time taken is 35 minutes. History of present illness This is a 78-year-old female who was recently admitted for acute non-ST segment myocardial infarction and underwent cardiac catheterization with stenting. Cardiology is following closely. From cardiology perspective, patient is clear for discharge and will follow-up in the outpatient setting in 1-2 weeks. Patient denies any chest pain, shortness of breath, or palpitations at this time. Patient denies any nausea or vomiting is tolerating diet. Patient remains afebrile. Patient continues to have significant weakness with an inability to walk and has been working with PT/OT. Discussed with the family at length as well as the patient about neurology in the outpatient setting. Patient will follow up with neurology upon discharge. Patient's son was at the bedside and made mention that once the patient is stabilized from rehab she may be moving to [place] with him for continued monitoring. Currently patient's condition is stable with much improvement and stable for discharge to the [facility] facility. Guarded prognosis. On exam vital signs are stable. Temp is 98.4F, pulse is 85, respirations are 16, blood pressure is 160/78, oxygen saturation is 95% on room air. Cardio S1 and S2 are muffled. Respiratory system shows diminished breath sounds at the bases otherwise clear to auscultation. Abdomen is soft and non-tender. Nervous system shows significant weakness. Please refer to medication reconciliation sheet for a list of medications. Patient Condition at Discharge: Fair Plan - Discharge Summary Discharge Rx Participant: Yes New Discharge Prescriptions: New Aspirin 81 mg PO DAILY chew Ticagrelor [Brilinta] 90 mg PO BID 30 Days #0 tab Folic Acid 1 mg PO DAILY tab Insulin Detemir (Levemir) [Levemir] 15 unit SQ HS syr Atorvastatin [Lipitor] 80 mg PO HS tab Metoprolol Tartrate [Lopressor] 50 mg PO BID tab Multivitamins, Thera [Multivitamin (formulary)] 1 each PO DAILY tab Nitroglycerin Sl Tabs [Nitrostat] 0.4 mg SUBLINGUAL Q5M PRN tab PRN Reason: Chest Pain HYDROcodone/APAP 5-325MG [[place] 5-325] 1 each PO Q6HR PRN #3 tab PRN Reason: Pain amLODIPine [Norvasc] 5 mg PO DAILY tab INSULIN ASPART (NovoLOG) [NovoLOG (formulary)] 0 unit SQ ACHS vial predniSONE 10 mg PO DIRECTED #30 tab Pantoprazole [Protonix] 40 mg PO AC-BRKFST tablet. Mirtazapine [Remeron] 15 mg PO HS tab Acetaminophen Tab [Tylenol] 500 mg PO Q6HR PRN tab PRN Reason: Fever And/ Or Pain Thiamine [Vitamin B-1] 100 mg PO DAILY@1200 tab Sertraline [Zoloft] 25 mg PO DAILY tab Continue Magnesium Complex 1 cap PO DAILY Nerve Repair 1 cap PO DAILY Nerve Renew 1 cap PO DAILY Discontinued Aspirin EC [Ecotrin Low Dose] 81 - 162 mg PO HS Discharge Medication List Magnesium Complex 1 cap PO DAILY 04/06/19 [History] Nerve Renew 1 cap PO DAILY 04/06/19 [History] Nerve Repair 1 cap PO DAILY 04/06/19 [History] Acetaminophen Tab [Tylenol] 500 mg PO Q6HR PRN tab 04/16/19 [Rx] Aspirin 81 mg PO DAILY chew 04/16/19 [Rx] Atorvastatin [Lipitor] 80 mg PO HS tab 04/16/19 [Rx] Folic Acid 1 mg PO DAILY tab 04/16/19 [Rx] HYDROcodone/APAP 5-325MG [[place] 5-325] 1 each PO Q6HR PRN #3 tab 04/16/19 [Rx] INSULIN ASPART (NovoLOG) [NovoLOG (formulary)] 0 unit SQ ACHS vial 04/16/19 [Rx] Insulin Detemir (Levemir) [Levemir] 15 unit SQ HS syr 04/16/19 [Rx] Metoprolol Tartrate [Lopressor] 50 mg PO BID tab 04/16/19 [Rx] Mirtazapine [Remeron] 15 mg PO HS tab 04/16/19 [Rx] Multivitamins, Thera [Multivitamin (formulary)] 1 each PO DAILY tab 04/16/19 [Rx] Nitroglycerin Sl Tabs [Nitrostat] 0.4 mg SUBLINGUAL Q5M PRN tab 04/16/19 [Rx] Pantoprazole [Protonix] 40 mg PO AC-BRKFST tablet.dr 04/16/19 [Rx] Sertraline [Zoloft] 25 mg PO DAILY tab 04/16/19 [Rx] Thiamine [Vitamin B-1] 100 mg PO DAILY@1200 tab 04/16/19 [Rx] Ticagrelor [Brilinta] 90 mg PO BID 30 Days #0 tab 04/16/19 [Rx] amLODIPine [Norvasc] 5 mg PO DAILY tab 04/16/19 [Rx] predniSONE 10 mg PO DIRECTED #30 tab 04/16/19 [Rx] Follow up Appointment(s)/Referral(s): Diane Perez MD [STAFF PHYSICIAN] - 2 Weeks Ihsan Klein MD [Primary Care Provider] - 1-2 days Cain Blum MD [STAFF PHYSICIAN] - 04/24/19 9:45 am (Please bring photo ID, insurance card and a list of your medications to follow up appointment. Financial Auditor.) Ambulatory/Diagnostic Orders: Basic Metabolic Panel [LAB.AMB] Time Frame: 3 Days, Location: None Selected Complete Blood Count w/diff [LAB.AMB] Time Frame: 3 Days, Location: None Selected Patient Instructions/Handouts: Heart Healthy Diet (DC), Coronary Intravascular Stent Placement (DC) Activity/Diet/Wound Care/Special Instructions: Patient is going to [facility] the [place] Activity as tolerated follow up with primary care provider follow up with neurology in the outpatient setting repeat labs in 2-3 days continue to work with PT/OT continue current heart healthy diet Discharge/Stand Alone Forms: [facility] Diary, [facility] Instructions Discharge Disposition: TRANSFER TO SNF/ECF
--- NOTE | 2019-04-16 14:51 | P.PN ---
Subjective Progress Note Date: 04/16/19 's is a 78-year-old female who was in the intensive care unit, came with complex and multiple medical problems, she did undergo stenting of the left main and the OM. She was seen and examined this morning continues to feel extremely weak and unable to walk. According to her she was not walking without assistance of a device at home either arrangements are being made for her to potentially go to rehab today. She denies any chest discomfort and her breathing overall has been stable. Blood pressure 160/70 with a heart rate in the 80s, 95% on room air. Blood cell count 14.4, hemoglobin 10.6, platelet count 277. Sodium 138, potassium 3.8, BUN 27 and creatinine 0.4. Objective - Vital Signs Vital signs: Vital Signs Temp 98.4 F 04/16/19 00:00 Pulse 85 04/16/19 00:00 Resp 17 04/16/19 04:00 BP 160/78 04/16/19 00:00 Pulse Ox 95 04/16/19 00:00 Intake & Output 04/15/19 04/16/19 04/16/19 18:59 06:59 18:59 Intake Total 720 240 Output Total 500 400 Balance 220 -400 240 Weight 66 kg Intake: Oral 720 240 Output: Urine 500 400 Other: Voiding Method Bedpan Bedpan # Voids 2 1 - Exam PHYSICAL EXAMINATION: GENERAL: 78-year-old female in no acute distress at the time of my examination HEENT: Head is atraumatic, normocephalic. Pupils equal, round. Sclera anicteric. Conjunctiva are clear. Mucous membranes of the mouth are moist. Neck is supple. There is no elevated jugular venous pressure. No carotid] b ruit is heard. HEART EXAMINATION: Heart S1, S2 normal. No murmur or gallop heard. CHEST EXAMINATION: Lungs are clear to auscultation and precussion. No chest wall tenderness is noted on palpation or with deep breathing. ABDOMEN: Soft, nontender. Bowel sounds are heard. No organomegaly noted. EXTREMITIES: 2+ peripheral pulses with no evidence of peripheral edema and no calf tenderness noted. Bilateral leg weakness NEUROLOGIC patient is awake, alert and oriented 3 . - Labs CBC & Chem 7: 04/16/19 06:05 04/16/19 06:05 Labs: Abnormal Lab Results - Last 24 Hours (Table) 04/15/19 04/15/19 04/16/19 Range/Units 16:47 20:16 06:05 WBC 14.4 H (3.8-10.6) k/uL RBC 3.60 L (3.80-5.40) m/uL Hgb 10.6 L (11.4-16.0) gm/dL Hct 31.8 L (34.0-46.0) % RDW 15.9 H (11.5-15.5) % Neutrophils # 12.0 H (1.3-7.7) k/uL BUN (7-17) mg/dL Creatinine (0.52-1.04) mg/dL Glucose (74-99) mg/dL POC Glucose (mg/dL) 218 H 223 H (75-99) mg/dL 04/16/19 04/16/19 04/16/19 Range/Units 06:05 06:05 12:28 WBC (3.8-10.6) k/uL RBC (3.80-5.40) m/uL Hgb (11.4-16.0) gm/dL Hct (34.0-46.0) % RDW (11.5-15.5) % Neutrophils # (1.3-7.7) k/uL BUN 27 H (7-17) mg/dL Creatinine 0.47 L (0.52-1.04) mg/dL Glucose 146 H (74-99) mg/dL POC Glucose (mg/dL) 149 H 249 H (75-99) mg/dL Assessment and Plan Plan: Assessment and plan #1 non-ST elevation myocardial infarction, status post left main stenting and stenting of the OM #2 diffuse progressive weakness with peripheral neuropathy #3 diabetes #4 hypertension #5 hyperlipidemia Plan Arrangements are being made for the patient to be transferred to rehab today. We will make her a follow-up appointment in the office one week post discharge with Dr. VC Blum. Patient will be discharged home on Norvasc 5 mg daily, aspirin 81 mg daily, Lipitor 80 mg daily, metoprolol 50 mg one tablet by mouth twice a day, Brilinta 90 mg twice a day and sublingual nitroglycerin as needed for chest pain. DNP note has been reviewed, I agree with a documented findings and plan of care. Patient was seen and examined.
--- NOTE | 2019-04-16 16:09 | P.PN ---
Subjective Progress Note Date: 04/16/19 Principal diagnosis: This is a 78-year-old female who was admitted with acute non-ST elevation myocardial infarction and is being closely monitored. Cardiology is following closely. Patient continues to have lower extremity weakness and has been working with PT/OT. Patient is currently awaiting authorization as her previous authorization for [facility]. Son at the bedside. Discussed with the patient at length about following up with neurology in the outpatient setting. Son states that the patient may moved to [place] after rehab to with him for continued care. Patient denies any shortness of breath, chest pain, or palpitations at this time. Patient has been afebrile. Patient denies any nausea or vomiting and is tolerating diet. Objective - Vital Signs Vital signs: Vital Signs Temp 98.4 F 04/16/19 00:00 Pulse 85 04/16/19 00:00 Resp 17 04/16/19 04:00 BP 160/78 04/16/19 00:00 Pulse Ox 95 04/16/19 00:00 Intake & Output 04/15/19 04/16/19 04/16/19 18:59 06:59 18:59 Intake Total 720 240 Output Total 500 400 Balance 220 -400 240 Weight 66 kg Intake: Oral 720 240 Output: Urine 500 400 Other: Voiding Method Bedpan Bedpan # Voids 2 1 - Exam Gen: This is a 78-year-old female lying in bed in no acute distress. Vital signs are stable. Blood pressure is 160/78, oxygen is 95% on room air, respirations are 16, pulse is 85, temp is 98.4F HEENT: Head is atraumatic, normocephalic. Pupils equal, round. Sclerae is anicteric. NECK: Supple. No JVD. No lymphadenopathy. No thyromegaly. LUNGS: Diminished breath sounds bilaterally. No wheezes or rhonchi noted. No intercostal retractions. HEART: S1 and S2 are muffled ABDOMEN: Soft. Bowel sounds are present. No masses. No tenderness. EXTREMITIES: No pedal edema. No calf tenderness. NEUROLOGICAL: Patient is awake, alert and oriented x3. Cranial nerves 2 through 12 are grossly intact. Significant weakness. - Labs CBC & Chem 7: 04/16/19 06:05 04/16/19 06:05 Labs: Abnormal Lab Results - Last 24 Hours (Table) 04/15/19 04/15/19 04/16/19 Range/Units 16:47 20:16 06:05 WBC 14.4 H (3.8-10.6) k/uL RBC 3.60 L (3.80-5.40) m/uL Hgb 10.6 L (11.4-16.0) gm/dL Hct 31.8 L (34.0-46.0) % RDW 15.9 H (11.5-15.5) % Neutrophils # 12.0 H (1.3-7.7) k/uL BUN (7-17) mg/dL Creatinine (0.52-1.04) mg/dL Glucose (74-99) mg/dL POC Glucose (mg/dL) 218 H 223 H (75-99) mg/dL 04/16/19 04/16/19 04/16/19 Range/Units 06:05 06:05 12:28 WBC (3.8-10.6) k/uL RBC (3.80-5.40) m/uL Hgb (11.4-16.0) gm/dL Hct (34.0-46.0) % RDW (11.5-15.5) % Neutrophils # (1.3-7.7) k/uL BUN 27 H (7-17) mg/dL Creatinine 0.47 L (0.52-1.04) mg/dL Glucose 146 H (74-99) mg/dL POC Glucose (mg/dL) 149 H 249 H (75-99) mg/dL Assessment and Plan Assessment: Acute non-ST segment myocardial infarction with troponin of 1.32, status post cardiac catheterization and stenting of the left anterior descending coronary artery Triple-vessel coronary artery disease on cardiac catheterization Diffuse progressive weakness with peripheral neuropathy, possible diabetic neuropathy, present on admission Significant gait dysfunction with motor component muscle weakness of undetermined etiology Small to moderate-sized subcutaneous hematoma of the right groin Hyponatremia history of appendectomy Status post lumbar epidural injection for significant lumbar degenerative joint disease, spondylosis and lumbar spine stenosis with peripheral neuropathy History of hysterectomy History of tonsillectomy History of ectopic Recommendations and discussion: Recommend continue current medications, management, and symptomatically treatment. Cardiology is following closely. PT/OT following. Patient is currently awaiting authorization for [facility]. Progno sis is guarded. Further recommendations to follow. Possible discharge in 24 hours once authorization for ECF has been obtained.
[2019-04-16 17:17] LABS: Glucose,Whole Blood 266 mg/dL (75-99)
[2019-04-16] MEDS: INSULIN DETEMIR (LEVEMIR) 100 UNIT/ML SYR SQ SCH (21:19)
[2019-04-16] MEDS: ATORVASTATIN 80 MG TAB PO SCH (21:19)
[2019-04-16 21:20] LABS: Glucose,Whole Blood 154 mg/dL (75-99)
[2019-04-16] MEDS: HYDROmorphone 0.5 MG/0.5 ML SYRINGE IVP PRN (21:20)
[2019-04-16] MEDS: MIRTAZAPINE 15 MG TAB PO SCH (21:20)
[2019-04-16 21:42] VITALS: RESP 18
[2019-04-17] MEDS ORDERED: HYDROmorphone 0.5 MG/0.5 ML SYRINGE IVP STA (00:20)
[2019-04-17] MEDS: HYDROcodone/APAP 5-325MG 1 EACH TAB PO PRN (05:56)
[2019-04-17] MEDS: methylPREDNISolone SOD SUCCI 40 MG/ML 1 ML VIAL IV SCH (05:57)
[2019-04-17 06:12] LABS: Basophils % (A) 0 %; Eosinophils # (A) 0.1 k/uL (0-0.7); Eosinophils % (A) 0 %; HCT 31.5 % (34.0-46.0); HGB 10.1 gm/dL (11.4-16.0); Lymphocytes # (A) 0.8 k/uL (1.0-4.8); Lymphocytes % (A) 5 %; MCH 28.7 pg (25.0-35.0); MCHC 32.1 g/dL (31.0-37.0); MCV 89.3 fL (80.0-100.0); Mean Platelet Volume 8.5; Monocytes # (A) 0.9 k/uL (0-1.0); Monocytes % (A) 6 %; Neutrophils # (A) 12.8 k/uL (1.3-7.7); Neutrophils % (A) 87 %; Platelet Count 276 k/uL (150-450); RBC 3.53 m/uL (3.80-5.40); WBC 14.8 k/uL (3.8-10.6)
[2019-04-17 06:23] LABS: African American GFR (CKD) >90 (>60 ml/min/1.73 sqM); Anion Gap 7 mmol/L; Blood Urea Nitrogen 33 mg/dL (7-17); Calcium 8.5 mg/dL (8.4-10.2); Carbon Dioxide 27 mmol/L (22-30); Chloride 102 mmol/L (98-107); Glucose 298 mg/dL (74-99); Potassium 4.4 mmol/L (3.5-5.1); Sodium 136 mmol/L (137-145)
[2019-04-17 07:04] LABS: Glucose,Whole Blood 312 mg/dL (75-99)
[2019-04-17] MEDS: INSULIN ASPART (NovoLOG) 100 UNIT/ML VIAL SQ SCH (07:25)
[2019-04-17] MEDS: PANTOPRAZOLE 40 MG TABLET PO SCH (07:26)
[2019-04-17] MEDS: amLODIPine 5 MG TAB PO SCH (08:46)
[2019-04-17] MEDS: ASPIRIN 81 MG PO SCH (08:46)
[2019-04-17] MEDS: MULTIVITAMINS, THERA 1 EACH TAB PO SCH (08:46)
[2019-04-17] MEDS: FOLIC ACID 1 MG TAB PO SCH (08:46)
[2019-04-17] MEDS: TICAGRELOR 90 MG TAB PO SCH (08:46)
[2019-04-17] MEDS: METOPROLOL TARTRATE 50 MG TAB PO SCH (08:46)
[2019-04-17] MEDS: SERTRALINE 25 MG TAB PO SCH (08:47)
[2019-04-17 10:20] VITALS: BP 125/59; PULSE 67; TEMP 97.6
--- NOTE | 2019-04-18 11:52 | CDI ---
Documentation Clarification Form Date: 04/18/19 From: Donna Oviedo Phone: If questions call Marilin Leos @ [phone], Hours-8:30 am & 5 pm M- F Admit Date: 04/08/2019 2:38:00 PM Patient Name: Shaila Mari Visit Number: [id number] Discharge Date: 04/17/2019 11:29:00 AM ATTENTION: The Clinical Documentation Specialists (CDI) and [facility] Coding Staff appreciate your assistance in clarifying documentation. Please respond to the clarification below the line at the bottom and electronically sign. The CDI & [facility] Coding staff will review the response and follow-up if needed. Please note: Queries are made part of the Legal Health Record. If you have any questions, please contact the author of this message via ITS. Dr. Cain Blum Atrial Fibrillation is documented in the 04/11 PN by you and Ning Mayfield. History/Risk Factors: DM neuropathy, NSTEMI, lumbar stenosis, DDD-L, spondylosis-L, Clinical Indicators: The patient has some sharp pain in the left inframammary area this morning and she went into atrial fibrillation with moderately RVR. Telemetry: atrial fibrillation with RVR heart rate 114 Treatment: Dilaudid, nitro paste and Cardizem drip In your professional opinion, can you please clarify the type of Atrial Fibrillation, if known? Chronic/Permanent Paroxysmal Persistent Other, please specify Unable to determine MTDD
--- NOTE | 2019-04-18 11:58 | CDI ---
Documentation Clarification Form Date: 04/18/2019 From: Donna Oviedo Phone: If questions call Marilin Leos @ [phone], Hours-8:30 am & 5 pm M- F Admit Date: 04/08/2019 2:38:00 PM Patient Name: Shaila Mari Visit Number: [id number] Discharge Date: 04/17/2019 11:29:00 AM ATTENTION: The Clinical Documentation Specialists (CDI) and [facility] Coding Staff appreciate your assistance in clarifying documentation. Please respond to the clarification below the line at the bottom and electronically sign. The CDI & [facility] Coding staff will review the response and follow-up if needed. Please note: Queries are made part of the Legal Health Record. If you have any questions, please contact the author of this message via ITS. Dr. Lubna Cazares The diagnosis status/post cardiac arrest was documented in the record in your 04/14 PN , but is not consistently noted in subsequent documentation. History/Risk Factors: NSTEMI, lumbar stenosis, DDD-L, spondylosis-L, DM neuropathy Please clarify if the above diagnosis was: Present/active/treated this admission Ruled out Other, please specify Clinically unable to determine Ruled out MTDD
== END 2019-04-17 11:29 | DRG 981 ==
LOC: EC 09:25 → 3NMEDONC 11:59 → OBSVTOIN 04-08 14:38 → 3SCARD 04-10 06:34 → 2SICU 04-10 14:07 → 3SCARD 04-15 09:45
PROVIDERS: ADMIT Hospitalist; ATTEND Hospitalist
PROC: 3E0R3BZ Introduction of Anesthetic Agent into Spinal Canal, Percutaneous Approach (ICD-10-PCS; 2019-04-08)
PROC: 3E0R33Z Introduction of Anti-inflammatory into Spinal Canal, Percutaneous Approach (ICD-10-PCS; 2019-04-08)
PROC: 4A023N7 Measurement of Cardiac Sampling and Pressure, Left Heart, Percutaneous Approach (ICD-10-PCS; 2019-04-10)
PROC: B2111ZZ Fluoroscopy of Multiple Coronary Arteries using Low Osmolar Contrast (ICD-10-PCS; 2019-04-10)
PROC: 027135Z Dilation of Coronary Artery, Two Arteries with Two Drug-eluting Intraluminal Devices, Percutaneous Approach (ICD-10-PCS; principal; 2019-04-11 13:30)
PROC: 02HA3RJ Insertion of Short-term External Heart Assist System into Heart, Intraoperative, Percutaneous Approach (ICD-10-PCS; 2019-04-11 13:30)
PROC: 5A0221D Assistance with Cardiac Output using Impeller Pump, Continuous (ICD-10-PCS; 2019-04-11 13:30)
DX: E11.42 Type 2 diabetes mellitus with diabetic polyneuropathy (principal); I21.4 Non-ST elevation (NSTEMI) myocardial infarction; E87.1 Hypo-osmolality and hyponatremia; M47.816 Spondylosis without myelopathy or radiculopathy, lumbar region; M51.36 Other intervertebral disc degeneration, lumbar region; M47.812 Spondylosis without myelopathy or radiculopathy, cervical region; M43.16 Spondylolisthesis, lumbar region; M46.96 Unspecified inflammatory spondylopathy, lumbar region; M48.061 Spinal stenosis, lumbar region without neurogenic claudication; B91 Sequelae of poliomyelitis; R53.1 Weakness; R29.6 Repeated falls; F32.9 Major depressive disorder, single episode, unspecified; I25.10 Atherosclerotic heart disease of native coronary artery without angina pectoris; I10 Essential (primary) hypertension; I48.91 Unspecified atrial fibrillation; S30.1XXA Contusion of abdominal wall, initial encounter; E78.5 Hyperlipidemia, unspecified; R51 Headache; F41.9 Anxiety disorder, unspecified; G47.00 Insomnia, unspecified; I25.2 Old myocardial infarction; R26.2 Difficulty in walking, not elsewhere classified; Z79.82 Long term (current) use of aspirin; Z79.899 Other long term (current) drug therapy; Z90.710 Acquired absence of both cervix and uterus; Z90.49 Acquired absence of other specified parts of digestive tract; Z98.890 Other specified postprocedural states; Z86.73 Personal history of transient ischemic attack (TIA), and cerebral infarction without residual deficits; Z99.3 Dependence on wheelchair; Z88.8 Allergy status to other drugs, medicaments and biological substances
CPT/HCPCS: 36415; 62323; 70450; 71046; 72125; 72141; 72148; 80048; 80053; 80061; 80074; 81001; 81003; 82607; 82747; 83036; 83605; 83735; 84439; 84443; 84484; 85025; 85027; 85347; 85610; 85652; 85730; 86140; 87070; 93005; 93306; 93458; 93880; 93975; 96360; 96361; 99285; C1874